=== PATIENT | female | born 1960 | race African-American/Black ===

== ENCOUNTER → 2016-08-11 | Outpatient (CLI) | payer OTHER ==
[2016-08-11 09:30] LABS: CHOLESTEROL 295.82 mg/dL (0-200); Direct HDL 47 mg/dL (>40); TRIGLYCERIDES 133 mg/dL (<150)
[2016-08-11 09:41] LABS: DIRECT LDL 231 mg/dL (<100)
[2016-08-13 14:11] LABS: CYCLIC CITRUL PEPTIDE IGG/A AB 14 units (0-19)
== END ==
LOC: CCC 08:17
DX: E11.9 Type 2 diabetes mellitus without complications (principal); I10 Essential (primary) hypertension; M32.9 Systemic lupus erythematosus, unspecified
CPT/HCPCS: 36415; 72050; 80061; 83036; 84443; 85652; 86038; 86200; 86430

== ENCOUNTER → 2016-09-27 | Outpatient (CLI) | payer OTHER ==
[2016-09-27 11:52] LABS: ANION GAP 14 (5-19); BLOOD UREA NITROGEN 14 mg/dL (7-20); CALCIUM 9.7 mg/dL (8.4-10.2); CARBON DIOXIDE 27 mmol/L (22-30); CHLORIDE 103 mmol/L (98-107); CHOLESTEROL 279.93 mg/dL (0-200); Direct HDL 40 mg/dL (>40); GLUCOSE 201 mg/dL (75-110); MAGNESIUM 1.7 mg/dL (1.6-2.3); SODIUM 143.9 mmol/L (137-145); TRIGLYCERIDES 140 mg/dL (<150)
[2016-09-27 12:02] LABS: DIRECT LDL 200 mg/dL (<100)
--- NOTE | 2016-09-27 12:56 | EKG REPORT ---
SEVERITY:- ABNORMAL ECG - SINUS RHYTHM CONSIDER LEFT VENTRICULAR HYPERTROPHY : Confirmed by: Lynda العلي MD 27-Sep-2016 12:55:18
== END ==
LOC: CCC 09:53
DX: E11.9 Type 2 diabetes mellitus without complications (principal); E78.5 Hyperlipidemia, unspecified; R25.2 Cramp and spasm
CPT/HCPCS: 36415; 80048; 80061; 83735; 93005; 93010

== ENCOUNTER 2016-10-17 15:38 | Emergency (ER) | payer OTHER ==
--- NOTE | 2016-10-17 16:05 | ER Document Report ---
ED Medical Screen (RME) - General Chief Complaint: Abdominal Pain Stated Complaint: ABDOMINAL,BACK,HIP PAIN Notes: Patient says she's having lower abdominal pain and lower back pain for a long time, months, maybe years. She also has pain in her left hip. Over the past week, she says the pain has increased. Does not recall any unusual activity. 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 Patient says she has lupus and wonders if it might have anything to do with the pain she is having. He is not under anyone's care locally at this time because she doesn't have health insurance anymore. She has been going to the [facility] and has an appointment there Tuesday. Patient denies vomiting or diarrhea. Denies UTI symptoms. Denies cough or cold or chest congestion. History of hysterectomy. Hypertension, IDDM, lupus. TRAVEL OUTSIDE OF THE [place] IN LAST 30 DAYS: No - Related Data Allergies/Adverse Reactions: No Known Allergies Allergy (Verified 10/17/16 15:48) Past Medical History - Past Medical History Cardiac Medical History: Reports: Hx Hypercholesterolemia, Hx Hypertension Denies: Hx Heart Attack Endocrine Medical History: Reports: Hx Diabetes Mellitus Type 2 Renal/ Medical History: Denies: Hx Peritoneal Dialysis GI Medical History: Reports: Hx Gastroesophageal Reflux Disease Musculoskeltal Medical History: Reports Hx Arthritis, Reports Hx Fibromyalgia, Reports Hx Musculoskeletal Deformity Psychiatric Medical History: Reports: Hx Anxiety, Hx Depression Past Surgical History: Reports: Hx Cardiac Catheterization, Hx Gynecologic Surgery - BILAT OOPHORECTOMY 2006., Hx Hysterectomy - 1999. - Immunizations Hx Diphtheria, Pertussis, Tetanus Vaccination: Yes Physical Exam - Vital signs Vitals: Temp Pulse Resp BP Pulse Ox 98.7 F 93 18 157/69 H 97 10/17/16 15:48 10/17/16 15:48 10/17/16 15:48 10/17/16 15:48 10/17/16 15:48 Course - Vital Signs Vital signs: Temp Pulse Resp BP Pulse Ox 98.7 F 93 18 157/69 H 97 10/17/16 15:48 10/17/16 15:48 10/17/16 15:48 10/17/16 15:48 10/17/16 15:48
[2016-10-17 16:32] LABS: ABSOLUTE BASOPHILS # (AUTO) 0.1 10^3/uL (0.0-0.2); ABSOLUTE EOSINOPHILS # (AUTO) 0.2 10^3/uL (0.0-0.6); ABSOLUTE LYMPHOCYTES (AUTO) 2.6 10^3/uL (0.5-4.7); ABSOLUTE MONOCYTES (AUTO) 0.4 10^3/uL (0.1-1.4); ABSOLUTE NEUT (AUTO) 3.4 10^3/uL (1.7-8.2); BASOPHILS % (AUTO) 0.8 % (0-2); EOSINOPHILS % (AUTO) 2.8 % (0-6); HEMATOCRIT 40.7 % (36.0-47.0); HEMOGLOBIN 13.8 g/dL (12.0-15.5); HGB HCT DIFFERENCE 0.7; LYMPHOCYTES % (AUTO) 39.8 % (13-45); MEAN CORPUSCULAR VOLUME 85 fl (80-97); MONOCYTES % (AUTO) 5.6 % (3-13); RED BLOOD COUNT 4.76 10^6/uL (3.72-5.28); RED CELL DISTRIBUTION WIDTH 13.7 % (11.5-14.0); WHITE BLOOD COUNT 6.7 10^3/uL (4.0-10.5)
[2016-10-17 16:45] LABS: APPEARANCE,URINE CLEAR; BILIRUBIN,URINE NEGATIVE (NEGATIVE); GLUCOSE, URINE >=500 mg/dL (NEGATIVE); KETONES,URINE NEGATIVE (NEGATIVE); LEUKOCYTE ESTERASE,URINE NEGATIVE (NEGATIVE); NITRITE,URINE NEGATIVE (NEGATIVE); PROTEIN,URINE NEGATIVE (NEGATIVE); URINE SPECIFIC GRAVITY 1.038; UROBILINOGEN,URINE NEGATIVE mg/dL (<2.0)
[2016-10-17 16:47] LABS: ALANINE AMINOTRANSFERASE 37 U/L (9-52); ALBUMIN 4.2 g/dL (3.5-5.0); ALKALINE PHOSPHATASE 75 U/L (38-126); ANION GAP 15 (5-19); ASPARTATE AMINO TRANSFERASE 20 U/L (14-36); BILIRUBIN,DIRECT 0.1 mg/dL (0.0-0.4); BILIRUBIN,TOTAL 0.4 mg/dL (0.2-1.3); BLOOD UREA NITROGEN 16 mg/dL (7-20); CARBON DIOXIDE 27 mmol/L (22-30); CHLORIDE 103 mmol/L (98-107); CREATININE RESULT 0.65 mg/dL (0.52-1.25); GLUCOSE 326 mg/dL (75-110); LIPASE 68.4 U/L (23-300); POTASSIUM 4.1 mmol/L (3.6-5.0); SODIUM 144.5 mmol/L (137-145); TOTAL PROTEIN 7.2 g/dL (6.3-8.2)
--- NOTE | 2016-10-17 17:12 | ER Document Report ---
ED GI/ - General Chief Complaint: Abdominal Pain Stated Complaint: ABDOMINAL,BACK,HIP PAIN Time seen by provider: 17:12 Mode of Arrival: Ambulatory Information source: Patient Notes: 55-year-old female presents to ED for lower abdominal pain and low back pain for a long time probably years. She states she also has left hip pain. She says over the last week this pain is increased. She does not recall any injury but she does do a lot of heavy lifting at work as she works at a [employer] and has to lift patients. She has a history of lupus diabetes blood pressure fibromyalgia chronic fatigue syndrome and neuropathy. TRAVEL OUTSIDE OF THE [place] IN LAST 30 DAYS: No - HPI Patient complains to provider of: Abdominal pain, Other - Low back pain left hip pain Onset: Other - Chronic Timing/Duration: Intermittent Quality of pain: Achy, Sharp Severity at maximum: Moderate Severity in ED: Moderate Pain Level: 3 Location: LLQ, RLQ, Low back, Other - Left hip Vaginal bleeding (Compared to normal period): None Associated symptoms: Other - Pain left and right lower abdomen and back. 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 [employer] Lives with: Alone Family History: Arthritis, Hypertension, Malignancy Patient has suicidal ideation: No Patient has homicidal ideation: No - Past Medical History Cardiac Medical History: Reports: Hx Hypercholesterolemia, Hx Hypertension Pulmonary Medical History: Reports: None EENT Medical History: Reports: None Neurological Medical History: Reports: None Endocrine Medical History: Reports: Hx Diabetes Mellitus Type 2, Other - Peripheral neuropathy Renal/ Medical History: Reports: None Malignancy Medical History: Reports: None GI Medical History: Reports: Hx Gastroesophageal Reflux Disease Musculoskeltal Medical History: Reports Hx Arthritis, Reports Hx Fibromyalgia, Reports Hx Musculoskeletal Deformity Psychiatric Medical History: Reports: Hx Anxiety, Hx Depression, Other - Chronic fatigue Traumatic Medical History: Reports: None Infectious Medical History: Reports: None Past Surgical History: Reports: Hx Cardiac Catheterization, Hx Gynecologic Surgery - BILAT OOPHORECTOMY 2007., Hx Hysterectomy - 1999. - Immunizations Hx Diphtheria, Pertussis, Tetanus Vaccination: Yes Review of Systems - Review of Systems Constitutional: No symptoms reported EENT: No symptoms reported Cardiovascular: No symptoms reported Respiratory: No symptoms reported Gastrointestinal: Abdominal pain - Chronic Genitourinary: No symptoms reported Female Genitourinary: No symptoms reported Musculoskeletal: Back pain - Chronic, Other - Left hip chronic Skin: No symptoms reported Hematologic/Lymphatic: No symptoms reported Neurological/Psychological: No symptoms reported -: Yes All other systems reviewed and negative Physical Exam - Vital signs Vitals: Temp Pulse Resp BP Pulse Ox 98.7 F 93 18 157/69 H 97 10/17/16 15:48 10/17/16 15:48 10/17/16 15:48 10/17/16 15:48 10/17/16 15:48 Interpretation: Normal - General General appearance: Appears well, Alert - HEENT Head: Normocephalic, Atraumatic Eyes: Normal Pupils: PERRL - Respiratory Respiratory status: No respiratory distress Chest status: Nontender Breath sounds: Normal Chest palpation: Normal - Cardiovascular Rhythm: Regular Heart sounds: Normal auscultation Murmur: No - Abdominal Inspection: Normal Distension: No distension Bowel sounds: Normal Tenderness: Tender - Entire lower abdomen. No: McBurney's point, Avelar's sign , Guarding, Rebound Organomegaly: No organomegaly - Back Back: Normal, Tender. No: Deformity/step-off, CVA tenderness, Vertebra tenderness, Scars, Scoliosis, Wounds - Extremities General upper extremity: Normal inspection, Nontender, Normal color, Normal ROM , Normal temperature General lower extremity: Normal inspection, Nontender, Normal color, Normal ROM , Normal temperature, Normal weight bearing. No: Zee's sign - Neurological Neuro grossly intact: Yes Cognition: Normal Orientation: AAOx4 [place] Coma Scale Eye Opening: Spontaneous [place] Coma Scale Verbal: Oriented [place] Coma Scale Motor: Obeys Commands [place] Coma Scale Total: 15 Speech: Normal Motor strength normal: LUE, RUE, LLE, RLE Sensory: Normal - Psychological Associated symptoms: Normal affect, Normal mood - Skin Skin Temperature: Warm Skin Moisture: Dry Skin Color: Normal Course - Re-evaluation Re-evalutation: 10/17/16 17:23 Discussed labs with patient. Written report of labs given to patient to follow- up with her primary doctor. - Vital Signs Vital signs: Temp Pulse Resp BP Pulse Ox 98.7 F 93 18 157/69 H 97 10/17/16 15:48 10/17/16 15:48 10/17/16 15:48 10/17/16 15:48 10/17/16 15:48 - Laboratory Result Diagrams: 10/17/16 16:19 10/17/16 16:19 Laboratory results interpreted by me: 10/17/16 10/17/16 16:19 16:19 Glucose 326 H Urine Glucose (UA) >=500 H Discharge - Discharge Clinical Impression: Lower abdominal pain, Right hip pain Low back pain Qualifiers: Chronicity: chronic Back pain laterality: bilateral Sciatica presence: without sciatica Qualified Code(s): M54.5 - Low back pain Condition: Stable Disposition: HOME, SELF-CARE Additional Instructions: LOW BACK PAIN: Three out of every four people will have an episode of disabling back pain during their lifetime. Most commonly the pain is due to straining of the muscles and ligaments in the low back. Usual treatment includes: (1) Rest on a firm surface. Avoid lying on your stomach. (2) Ice pack the painful area. After a few days, gentle heat may be used intermittently to relax the area, or ice packs can be continued. (3) Medication may be needed -- muscle relaxers and antiinflammatory medicines are commonly used. (4) As the back improves, exercises are prescribed to strengthen the back and abdominal muscles. Your doctor will advise you on the proper care for your back at each stage in your recovery. You may be better in a few days -- or healing may take several weeks. If new symptoms of a "herniated disc" (radiation of pain, numbness, or tingling down the back of the leg or weakness in the leg) occur, you should be re-examined. Further testing may be necessary. ABDOMINAL PAIN: There are many causes of abdominal pain. Pain can mean a serious problem requiring surgery (such as appendicitis). It can also be an innocent problem that goes away on its own (such as a viral infection). Often, time must pass to determine the cause of pain. The physician does not feel that hospitalization is necessary, at present. Things may change within the next 24 hours. Call the doctor or come back for re- examination if any problems occur, such as: (1) Pain that becomes more severe, steady, or becomes concentrated in one specific area. Also, pain that is more severe with movement or coughing. (2) Vomiting that persists or becomes more frequent. (3) Blood in the vomitus, urine, or bowel movements. Blood in the stool may have a tarry or black appearance. (4) Shaking chills or fever greater than 100 degrees F. (5) The abdomen becomes more distended or swollen. (6) Bowel movements cease. (7) Failure to improve as expected. Please limit sure starches and fats in your diet as it increases your blood sugar. Please follow your diabetic diet as you were instructed by your doctor. ICE PACKS: Apply ice packs frequently against the painful area. Many different schedules are recommended, such as "20 minutes on, 20 minutes off" or "one hour ice, two hours rest." If you need to work, you may need to go longer between ice treatments. You should plan to have the area ice packed AT LEAST one fourth of the time. The ice should be applied over the wrap, tape, or splint, or over a layer of cloth -- not directly against the skin. Some ice bags have a built-in cloth and can be put directly on the skin. WARM PACKS: After approximately two days, apply gentle heat (such as a heating pad or hot water bottle) for about 20 to 30 minutes about every two hours -- at least four times daily. Warmth and elevation will help you make a more rapid recovery , and will ease the pain considerably. Do not use HOT heat, and never apply heat for longer than 30 minutes. The continuous heat can invisibly damage skin and muscles -- even when no burn is seen on the surface. Damaged muscles can make you MORE sore. Continue your current medications. Please take the lab values that I gave you to your appointment with [facility] on Tuesday. FOLLOW-UP CARE: If you have been referred to a physician for follow-up care, call the physician s office for an appointment as you were instructed or within the next two days. If you experience worsening or a significant change in your symptoms, notify the physician immediately or return to the Emergency Department at any time for re-evaluation. Forms: Elevated Blood Pressure, Return to Work Referrals: [facility] [Provider Group] - Follow up as needed
[2016-10-17 18:20] VITALS: BP 145/86
== END 2016-10-17 18:24 | disposition home or self-care (01) ==
LOC: ER 15:38
DX: R10.30 Lower abdominal pain, unspecified (principal); M25.552 Pain in left hip; M54.5 Low back pain; M32.9 Systemic lupus erythematosus, unspecified; E11.9 Type 2 diabetes mellitus without complications; R03.0 Elevated blood-pressure reading, without diagnosis of hypertension; M79.7 Fibromyalgia; R53.82 Chronic fatigue, unspecified; G62.9 Polyneuropathy, unspecified
CPT/HCPCS: 36415; 80053; 81001; 83690; 85025; 99284

== ENCOUNTER 2016-11-03 18:32 | Emergency (ER) | payer SELFPAY ==
[2016-11-03] MEDS ORDERED: MECLIZINE HCL 25 MG TABLET PO ONE (18:56)
--- NOTE | 2016-11-03 18:56 | ER Document Report ---
ED Medical Screen (RME) - General Chief Complaint: Dizziness Stated Complaint: DIZZY/LEFT HAND SWELLING Time Seen by Provider: 11/03/16 18:52 Mode of Arrival: Ambulatory Information source: Patient Notes: Patient reports several weeks of intermittent dizziness which has been mild but this morning while walking noticed much more severe dizziness to the point that she had difficulty walking without holding onto something and falling over to her right side. She denies any loss of consciousness. She reports occasional nausea with the dizziness but no vomiting. She reports it is not made worse with sitting up or with head rotation. She denies any visual disturbances or focal numbness weakness to any extremity. He reported one point she might of had some shortness of breath with it but denies any chest pain or diaphoresis she thinks the dizziness is somewhat better now but still worse than what she is accustomed to Physical exam Well-developed well-nourished female alert no respiratory distress Skin warm and dry Chest clear to auscultation bilateral breath sounds equal Heart regular rate and rhythm Neuro speech clear mentation normal facing baster jumpbasting strength 5 out of 5 equal both upper tremors motor function 5 out of 5 equal both lower extremities cranial nerves III through XII intact no nystagmus rotation of head left or right does not reproduce patient's dizziness TRAVEL OUTSIDE OF THE [place] IN LAST 30 DAYS: No - Related Data Allergies/Adverse Reactions: No Known Allergies Allergy (Verified 10/17/16 15:48) Past Medical History - Past Medical History Cardiac Medical History: Reports: Hx Hypercholesterolemia, Hx Hypertension Denies: Hx Heart Attack Endocrine Medical History: Reports: Hx Diabetes Mellitus Type 2 Renal/ Medical History: Denies: Hx Peritoneal Dialysis GI Medical History: Reports: Hx Gastroesophageal Reflux Disease Musculoskeltal Medical History: Reports Hx Arthritis, Reports Hx Fibromyalgia, Reports Hx Musculoskeletal Deformity Psychiatric Medical History: Reports: Hx Anxiety, Hx Depression Past Surgical History: Reports: Hx Cardiac Catheterization, Hx Gynecologic Surgery - BILAT OOPHORECTOMY 2006., Hx Hysterectomy - 1999. - Immunizations Hx Diphtheria, Pertussis, Tetanus Vaccination: Yes Physical Exam - Vital signs Vitals: Temp Pulse Resp BP Pulse Ox 98.7 F 78 18 135/74 H 97 11/03/16 18:40 11/03/16 18:40 11/03/16 18:40 11/03/16 18:40 11/03/16 18:40 Course - Vital Signs Vital signs: Temp Pulse Resp BP Pulse Ox 98.7 F 78 18 135/74 H 97 11/03/16 18:40 11/03/16 18:40 11/03/16 18:40 11/03/16 18:40 11/03/16 18:40
[2016-11-03 19:27] LABS: ABSOLUTE EOSINOPHILS # (AUTO) 0.2 10^3/uL (0.0-0.6); ABSOLUTE LYMPHOCYTES (AUTO) 2.7 10^3/uL (0.5-4.7); ABSOLUTE MONOCYTES (AUTO) 0.5 10^3/uL (0.1-1.4); BASOPHILS % (AUTO) 0.6 % (0-2); EOSINOPHILS % (AUTO) 3.7 % (0-6); HEMATOCRIT 43.5 % (36.0-47.0); HEMOGLOBIN 14.6 g/dL (12.0-15.5); HGB HCT DIFFERENCE 0.3; LYMPHOCYTES % (AUTO) 41.8 % (13-45); MEAN CORPUSCULAR HEMOGLOBIN 28.5 pg (27.0-33.4); MEAN CORPUSCULAR HGB CONC 33.5 g/dL (32.0-36.0); MEAN CORPUSCULAR VOLUME 85 fl (80-97); MONOCYTES % (AUTO) 7.8 % (3-13); RED BLOOD COUNT 5.12 10^6/uL (3.72-5.28); RED CELL DISTRIBUTION WIDTH 13.8 % (11.5-14.0); SEGMENTED NEUTROPHILS % (AUTO) 46.1 % (42-78); WHITE BLOOD COUNT 6.4 10^3/uL (4.0-10.5)
[2016-11-03 19:46] LABS: ALANINE AMINOTRANSFERASE 38 U/L (9-52); ALBUMIN 4.4 g/dL (3.5-5.0); ALKALINE PHOSPHATASE 84 U/L (38-126); ANION GAP 14 (5-19); ASPARTATE AMINO TRANSFERASE 21 U/L (14-36); BILIRUBIN,DIRECT 0.3 mg/dL (0.0-0.4); BILIRUBIN,TOTAL 0.4 mg/dL (0.2-1.3); BLOOD UREA NITROGEN 18 mg/dL (7-20); CALCIUM 10.2 mg/dL (8.4-10.2); CARBON DIOXIDE 29 mmol/L (22-30); CHLORIDE 99 mmol/L (98-107); CREATINE KINASE 82 U/L (30-135); CREATININE RESULT 0.67 mg/dL (0.52-1.25); POTASSIUM 3.6 mmol/L (3.6-5.0); SODIUM 141.6 mmol/L (137-145); TOTAL PROTEIN 7.8 g/dL (6.3-8.2)
[2016-11-03 19:56] LABS: CREATINE KINASE MB 0.72 ng/mL (<4.55); GLUCOSE 415 mg/dL (75-110); TROPONIN I < 0.012 ng/mL
[2016-11-03] MEDS ORDERED: INSULIN REG, HUMAN 100 UNIT/ML 3 ML VIAL (PYX) SUBCUT ONE (20:11)
--- NOTE | 2016-11-03 20:29 | ER Document Report ---
ED Dizziness/Weakness - General Chief Complaint: Dizziness Stated Complaint: DIZZY/LEFT HAND SWELLING Time Seen by Provider: 11/03/16 18:52 Mode of Arrival: Ambulatory Information source: Patient Notes: Patient is 55-year-old -Thai female with type II diabetes who presents to the ER today for dizziness 1 day, worsening today and elevated blood sugar readings at home, as high as 350 prior to arrival. Patient takes Toujeo insulin and states that she did give herself her regular 28 units today. She states that she does not have insurance and cannot afford "good care" and that she does not check her blood sugar regularly. She does state that when she does check it usually does run high. She also admits to not eating a good diet because she "just doesn't care." She denies any chest pain, shortness of breath, nausea or vomiting, abdominal pain, diarrhea, abnormal numbness or tingling anywhere. She states that she also had some swelling in her right hand that she noticed yesterday but that it has gone down at this time. It was only over one of her knuckles. She does not think anything bit her. TRAVEL OUTSIDE OF THE [place] IN LAST 30 DAYS: No - Related Data Allergies/Adverse Reactions: No Known Allergies Allergy (Verified 10/17/16 15:48) Past Medical History - General Information source: Patient - Social History Smoking Status: Unknown if Ever Smoked Family History: Arthritis, Hypertension, Malignancy Patient has suicidal ideation: No Patient has homicidal ideation: No - Past Medical History Cardiac Medical History: Reports: Hx Hypercholesterolemia, Hx Hypertension Denies: Hx Heart Attack Endocrine Medical History: Reports: Hx Diabetes Mellitus Type 2 Renal/ Medical History: Denies: Hx Peritoneal Dialysis GI Medical History: Reports: Hx Gastroesophageal Reflux Disease Musculoskeltal Medical History: Reports Hx Arthritis, Reports Hx Fibromyalgia, Reports Hx Musculoskeletal Deformity Psychiatric Medical History: Reports: Hx Anxiety, Hx Depression Past Surgical History: Reports: Hx Cardiac Catheterization, Hx Gynecologic Surgery - BILAT OOPHORECTOMY 2006., Hx Hysterectomy - 1999. - Immunizations Hx Diphtheria, Pertussis, Tetanus Vaccination: Yes Review of Systems - Review of Systems Constitutional: No symptoms reported EENT: No symptoms reported Cardiovascular: No symptoms reported Respiratory: No symptoms reported Gastrointestinal: No symptoms reported Genitourinary: No symptoms reported Female Genitourinary: No symptoms reported Musculoskeletal: No symptoms reported Skin: See HPI Hematologic/Lymphatic: No symptoms reported Neurological/Psychological: See HPI Physical Exam - Vital signs Vitals: Temp Pulse Resp BP Pulse Ox 98.7 F 78 18 135/74 H 97 11/03/16 18:40 11/03/16 18:40 11/03/16 18:40 11/03/16 18:40 11/03/16 18:40 - Notes Notes: PHYSICAL EXAMINATION: GENERAL: Laying down, not wanting to move around a lot, but in no acute distress. HEAD: Atraumatic, normocephalic. EYES: No nystagmus noted, Pupils equal round and reactive to light, extraocular movements intact, sclera anicteric, conjunctiva are normal. ENT: ear canals without erythema or foreign body, TMs pearly gordon with good bony landmarks, nares patent, oropharynx clear without exudates. Moist mucous membranes. NECK: Normal range of motion, supple without lymphadenopathy LUNGS: CTAB and equal. No wheezes rales or rhonchi. HEART: Regular rate and rhythm without murmurs ABDOMEN: Soft, no tenderness. No guarding, no rebound GI/: no CVA tenderness EXTREMITIES: Normal range of motion, no pitting edema. No cyanosis. NEUROLOGICAL: Good and equal strength bilaterally, normal Romberg test, normal [id number] testing, Cranial nerves grossly intact. Normal sensory/motor exams. PSYCH: Flat affect SKIN: Warm, Dry, normal turgor, no rashes or lesions noted Course - Re-evaluation Re-evalutation: 11/03/16 20:29 Patient's blood sugar is 415. Regular insulin was administered. 11/03/16 21:26 Patient feels better, walking around and states that dizziness is not bothering her at this time. Will recheck sugar and get ready for discharge. 11/03/16 22:48 glucose was 266 on discharge. 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 Please check your sugar daily. Return immediately for any new or worsening symptoms. Follow up with primary care provider, call tomorrow to make followup appointment.
--- NOTE | 2016-11-03 23:40 | EKG REPORT ---
SEVERITY:- ABNORMAL ECG - SINUS RHYTHM PROBABLE LEFT ATRIAL ABNORMALITY PROBABLE LEFT VENTRICULAR HYPERTROPHY BORDERLINE INFERIOR Q WAVES BORDERLINE T ABNORMALITIES, INFERIOR LEADS : Confirmed by: Lenard Tse 03-Nov-2016 23:39:50
[2016-11-03 23:50] VITALS: BP 149/60
== END 2016-11-03 21:27 | disposition home or self-care (01) ==
LOC: ER 18:32
DX: E11.65 Type 2 diabetes mellitus with hyperglycemia (principal); Z79.4 Long term (current) use of insulin; R42 Dizziness and giddiness; Z59.9 Problem related to housing and economic circumstances, unspecified; I10 Essential (primary) hypertension
CPT/HCPCS: 93005; 99285; 36415; 82553; 82962; 82550; 85025; 80053; 84484; 71010; 70450; 93010; J1815

== ENCOUNTER 2016-11-04 17:24 | Emergency (ER) | payer SELFPAY ==
--- NOTE | 2016-11-04 19:18 | ER Document Report ---
ED Medical Screen (RME) - General Mode of Arrival: Ambulatory Information source: Patient TRAVEL OUTSIDE OF THE [place] IN LAST 30 DAYS: No - HPI Patient complains to provider of: dizzy - General Chief Complaint: Dizziness Stated Complaint: dizziness Notes: Patient presents with complaints of dizziness for 3 days. Was seen here yesterday for same complaint told it was due to high blood sugar, pt recorded her sugars at 300 today but hasn't checked again after taking insulin. Patient describes dizziness as her head spinning and also complains of being off balance , veering to the right, headache on the top of her skull, and intermittent chest pain. Patient is not on blood thinners. no family history of heart attack or CVA, no blood clots. Hx of lupus, DM, HTN, and hypercholesterolema. (YESSICA BARRAGAN) - Related Data Allergies/Adverse Reactions: No Known Allergies Allergy (Verified 11/04/16 18:45) Past Medical History - General Information source: Patient - Social History Cigarette use (# per day): No Chew tobacco use (# tins/day): No Frequency of alcohol use: None Drug Abuse: None - Past Medical History Cardiac Medical History: Reports: Hx Hypercholesterolemia, Hx Hypertension Denies: Hx Heart Attack Endocrine Medical History: Reports: Hx Diabetes Mellitus Type 2 Renal/ Medical History: Denies: Hx Peritoneal Dialysis GI Medical History: Reports: Hx Gastroesophageal Reflux Disease Musculoskeltal Medical History: Reports Hx Arthritis, Reports Hx Fibromyalgia, Reports Hx Musculoskeletal Deformity Psychiatric Medical History: Reports: Hx Anxiety, Hx Depression Past Surgical History: Reports: Hx Cardiac Catheterization, Hx Gynecologic Surgery - BILAT OOPHORECTOMY 2006., Hx Hysterectomy - 1999. - Immunizations Hx Diphtheria, Pertussis, Tetanus Vaccination: Yes Review of Systems - Review of Systems Cardiovascular: See HPI, Dizziness Physical Exam - HEENT Eyes: Normal Extraocular movements intact: Yes - no nystagmus - Respiratory Respiratory status: No respiratory distress Chest status: Nontender Breath sounds: Normal - Cardiovascular Rhythm: Regular Heart sounds: Normal auscultation Murmur: No - Abdominal Inspection: Normal Distension: No distension Bowel sounds: Normal Tenderness: Nontender - Back Back: Normal, Nontender - Extremities General upper extremity: Normal inspection General lower extremity: Normal inspection - Neurological Neuro grossly intact: Yes Cognition: Normal Orientation: AAOx4 [place] Coma Scale Eye Opening: Spontaneous [place] Coma Scale Verbal: Oriented [place] Coma Scale Motor: Obeys Commands [place] Coma Scale Total: 15 Speech: Normal Cranial nerves: Normal Cerebellar coordination: Normal Motor strength normal: LUE, RUE, LLE, RLE Additional 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 Patient apparently felt much better after blood sugar decreased. We will not repeat CAT scan at today as her symptoms are unchanged. (JASON CRYSTAL) - Vital Signs Vital signs: Temp Pulse Resp BP Pulse Ox 98.7 F 74 17 142/72 H 96 11/04/16 17:29 11/04/16 17:29 11/04/16 17:29 11/04/16 17:29 11/04/16 17:29 Scribe Documentation - Scribe Written by Patrick:: patrick Chan, 11/04/16, 192 acting as scribe for :: Greer
[2016-11-04 19:47] LABS: ABSOLUTE EOSINOPHILS # (AUTO) 0.3 10^3/uL (0.0-0.6); ABSOLUTE LYMPHOCYTES (AUTO) 3.3 10^3/uL (0.5-4.7); ABSOLUTE MONOCYTES (AUTO) 0.6 10^3/uL (0.1-1.4); ABSOLUTE NEUT (AUTO) 2.7 10^3/uL (1.7-8.2); BASOPHILS % (AUTO) 0.6 % (0-2); EOSINOPHILS % (AUTO) 3.8 % (0-6); HEMATOCRIT 43.1 % (36.0-47.0); HEMOGLOBIN 14.2 g/dL (12.0-15.5); HGB HCT DIFFERENCE -0.5; LYMPHOCYTES % (AUTO) 47.6 % (13-45); MEAN CORPUSCULAR HEMOGLOBIN 28.6 pg (27.0-33.4); MEAN CORPUSCULAR VOLUME 87 fl (80-97); MONOCYTES % (AUTO) 8.2 % (3-13); RED BLOOD COUNT 4.98 10^6/uL (3.72-5.28); RED CELL DISTRIBUTION WIDTH 13.9 % (11.5-14.0); SEGMENTED NEUTROPHILS % (AUTO) 39.8 % (42-78); WHITE BLOOD COUNT 6.9 10^3/uL (4.0-10.5)
[2016-11-04 19:55] LABS: APPEARANCE,URINE CLEAR; BILIRUBIN,URINE NEGATIVE (NEGATIVE); GLUCOSE, URINE >=500 mg/dL (NEGATIVE); KETONES,URINE NEGATIVE (NEGATIVE); LEUKOCYTE ESTERASE,URINE NEGATIVE (NEGATIVE); NITRITE,URINE NEGATIVE (NEGATIVE); PROTEIN,URINE NEGATIVE (NEGATIVE); URINE SPECIFIC GRAVITY 1.032; UROBILINOGEN,URINE NEGATIVE mg/dL (<2.0)
[2016-11-04 20:08] LABS: ALANINE AMINOTRANSFERASE 43 U/L (9-52); ALBUMIN 4.2 g/dL (3.5-5.0); ALKALINE PHOSPHATASE 80 U/L (38-126); ANION GAP 13 (5-19); ASPARTATE AMINO TRANSFERASE 20 U/L (14-36); BILIRUBIN,DIRECT 0.4 mg/dL (0.0-0.4); BILIRUBIN,TOTAL 0.5 mg/dL (0.2-1.3); BLOOD UREA NITROGEN 24 mg/dL (7-20); CALCIUM 10.3 mg/dL (8.4-10.2); CARBON DIOXIDE 30 mmol/L (22-30); CHLORIDE 99 mmol/L (98-107); CREATINE KINASE 72 U/L (30-135); CREATININE RESULT 0.71 mg/dL (0.52-1.25); GLUCOSE 356 mg/dL (75-110); POTASSIUM 3.8 mmol/L (3.6-5.0); TOTAL PROTEIN 7.6 g/dL (6.3-8.2)
[2016-11-04 20:21] LABS: TROPONIN I < 0.012 ng/mL
--- NOTE | 2016-11-04 23:12 | ER Document Report ---
ED General - General Chief Complaint: Dizziness Stated Complaint: CHEST PAIN Time Seen by Provider: 11/04/16 19:10 Mode of Arrival: Ambulatory Information source: Patient TRAVEL OUTSIDE OF THE [place] IN LAST 30 DAYS: No - HPI Notes: Patient is a 55-year-old female history of [id number] diabetes lupus hypertension hypercholesterolemia status post cardiac catheterization that was without significant abnormality 2012, status post hysterectomy and history of anxiety presents to emergency department with report that she felt dizzy and lightheaded upon standing and felt generally weak. The patient is not observing a diabetic diet and reports eating a pack of snickers bars and perpetually drinking sweetened iced tea and other sugary foods and her blood sugars have been running elevated recently. Patient reports she had 2-3 second episode of mild chest pain at 11:30 AM that was associated with minimal belching. She denies any difficulty breathing and reports no nausea or vomiting. Patient denies any radiation of chest pain. She denies any significant headache. Patient was seen yesterday for similar complaint and blood sugar was over 400 came down to 200s and she had a negative head CT and other normal lab work. Patient states she is on Glucophage 500 mg once per day because she was unable to take a larger dose due to it making her feel ill. She currently takes glipizide 10 mg by mouth twice a day and states she is compliant. - Related Data Allergies/Adverse Reactions: No Known Allergies Allergy (Verified 11/04/16 18:45) Past Medical History - General Information source: Patient - Social History Smoking Status: Never Smoker Cigarette use (# per day): No Chew tobacco use (# tins/day): No Frequency of alcohol use: None Drug Abuse: None Family History: Arthritis, Hypertension, Malignancy Patient has suicidal ideation: No Patient has homicidal ideation: No - Past Medical History Cardiac Medical History: Reports: Hx Hypercholesterolemia, Hx Hypertension Denies: Hx Heart Attack Endocrine Medical History: Reports: Hx Diabetes Mellitus Type 2 Renal/ Medical History: Denies: Hx Peritoneal Dialysis GI Medical History: Reports: Hx Gastroesophageal Reflux Disease Musculoskeltal Medical History: Reports Hx Arthritis, Reports Hx Fibromyalgia, Reports Hx Musculoskeletal Deformity Psychiatric Medical History: Reports: Hx Anxiety, Hx Depression Past Surgical History: Reports: Hx Cardiac Catheterization, Hx Gynecologic Surgery - BILAT OOPHORECTOMY 2006., Hx Hysterectomy - Immunizations Hx Diphtheria, Pertussis, Tetanus Vaccination: Yes Review of Systems - Review of Systems Notes: REVIEW OF SYSTEMS: CONSTITUTIONAL : Denies fever, chills, or sweats. EENT: Denies eye, ear, throat, or mouth pain or symptoms. Denies nasal or sinus congestion or discharge. Denies throat, tongue, or mouth swelling or difficulty swallowing. CARDIOVASCULAR: Denies palpitations or racing or irregular heart beat. Denies ankle edema. RESPIRATORY: Denies cough, cold, or chest congestion. Denies shortness of breath, difficulty breathing, or wheezing. GASTROINTESTINAL: Denies abdominal pain or distention. Denies nausea, vomiting , or diarrhea. Denies blood in vomitus, stools, or per rectum. Denies black, tarry stools. Denies constipation. GENITOURINARY: Denies difficulty urinating, painful urination, burning, frequency, blood in urine, or discharge. FEMALE GENITOURINARY: Denies vaginal bleeding, heavy or abnormal periods, irregular periods. Denies vaginal discharge or odor. MUSCULOSKELETAL: Denies back or neck pain or stiffness. Denies joint pain or swelling. SKIN: Denies rash, lesions or sores. HEMATOLOGIC : Denies easy bruising or bleeding. LYMPHATIC: Denies swollen, enlarged glands. NEUROLOGICAL: Denies confusion or altered mental status. Denies passing out or loss of consciousness. Denies headache. Denies weakness or paralysis or loss of use of either side. Denies problems with gait or speech. Denies sensory loss, numbness, or tingling. Denies seizures. PSYCHIATRIC: Denies anxiety or stress. Denies depression, suicidal ideation, or homicidal ideation. ALL OTHER SYSTEMS REVIEWED AND NEGATIVE. Dictation was performed using [employer] voice recognition software Physical Exam - Vital signs Vitals: Temp Pulse Resp BP Pulse Ox 98.7 F 74 17 142/72 H 96 11/04/16 17:29 11/04/16 17:29 11/04/16 17:29 11/04/16 17:29 11/04/16 17:29 - Notes Notes: PHYSICAL EXAMINATION: GENERAL: Well-appearing, well-nourished and in no acute distress. HEAD: Atraumatic, normocephalic. EYES: Pupils equal round and reactive to light, extraocular movements intact, conjunctiva are normal. ENT: Nares patent, oropharynx clear without exudates. Moist mucous membranes. Tympanic membranes are clear. NECK: Normal range of motion, supple without lymphadenopathy. No carotid bruits. LUNGS: Breath sounds clear to auscultation bilaterally and equal. No wheezes rales or rhonchi. HEART: Regular rate and rhythm without murmurs ABDOMEN: Soft, nontender, nondistended abdomen. No guarding, no rebound. No masses appreciated. Obese Female : deferred Musculoskeletal: Normal range of motion, no pitting or edema. No cyanosis. NEUROLOGICAL: Cranial nerves grossly intact. Normal speech, normal gait. Normal sensory, motor exams. No gross nystagmus. No cerebellar abnormalities. Normal gait exam. PSYCH: Normal mood, normal affect. SKIN: Warm, Dry, normal turgor, no rashes or lesions noted. Course - Re-evaluation Re-evalutation: 11/04/16 23:12 Initial blood sugar is 356. The patient was given by mouth fluids and repeat blood sugar came down to 215. Patient's elevated BUN to creatinine ratio supports a mild dehydration related to her perpetual hyperglycemia. However, she may be somewhat dehydrated related to her hydrochlorothiazide dosing. We will stop the hydrochlorothiazide. We will instruct the patient to observe a prudent diabetic diet she was counseled at length related to this. Patient will follow-up with her regular practitioner, she may need further evaluation for possible increase in her glipizide dosing. She will stand up slowly and drink plenty of water. No evidence for diabetic ketoacidosis or GI bleed or anemia or CVA or acute cardiac ischemia, and troponin is negative many hours after onset of the several seconds of chest pain the patient had previously. 11/04/16 23:16 Patient was ambulatory with stable blood pressure and was asymptomatic. No clinical suggestion for CVA or cardiac ischemia. - Vital Signs Vital signs: Temp Pulse Resp BP Pulse Ox 98.2 F 73 18 138/68 H 97 11/04/16 21:30 11/04/16 21:30 11/04/16 22:00 11/04/16 21:30 11/04/16 22:00 - Laboratory Result Diagrams: 11/04/16 19:25 11/04/16 19:25 Laboratory results interpreted by me: 11/04/16 11/04/16 11/04/16 19:25 19:25 19:25 Seg Neutrophils % 39.8 L Lymphocytes % 47.6 H BUN 24 H Glucose 356 H POC Glucose Calcium 10.3 H Urine Glucose (UA) >=500 H 11/04/16 22:41 Seg Neutrophils % Lymphocytes % BUN Glucose POC Glucose 215 H Calcium Urine Glucose (UA) - Diagnostic Test Radiology reviewed: Reports reviewed - EKG Interpretation by Me EKG shows normal: Sinus rhythm Additional EKG results interpreted by me: 11/04/16 23:11 EKG as interpreted by me showed normal sinus rhythm heart rate of 69. There was left ventricular hypertrophy noted. There was no gross evidence for acute MA or ischemia noted. Discharge - Discharge Clinical Impression: Dizziness, Hyperglycemia, Dehydration Condition: Stable Disposition: HOME, SELF-CARE Instructions: Dizziness ([facility]), Dehydration ([facility]), Hyperglycemia ([facility]), Chest Pain of Unclear Cause ([facility]) Additional Instructions: Follow-up with your regular practitioner in 2 days. If her blood sugars remain elevated, your doctor may want to increase her glipizide or even consider starting insulin. Drink plenty of water. Stand slowly. Check and record her blood sugars regularly. It is very important for you to have a very prudent diabetic diet and limit your sugar intake.
[2016-11-05 00:05] VITALS: BP 130/60
--- NOTE | 2016-11-05 13:46 | EKG REPORT ---
SEVERITY:- ABNORMAL ECG - SINUS RHYTHM CONSIDER LEFT VENTRICULAR HYPERTROPHY BORDERLINE INFERIOR Q WAVES : Confirmed by: Lenard Tse 05-Nov-2016 13:45:30
== END 2016-11-05 00:02 | disposition home or self-care (01) ==
LOC: ER 17:24
DX: R42 Dizziness and giddiness (principal); E86.0 Dehydration; E11.65 Type 2 diabetes mellitus with hyperglycemia; R53.1 Weakness; R07.9 Chest pain, unspecified; Z79.4 Long term (current) use of insulin; Z79.84 Long term (current) use of oral hypoglycemic drugs; I10 Essential (primary) hypertension; E78.00 Pure hypercholesterolemia, unspecified; Z90.710 Acquired absence of both cervix and uterus
CPT/HCPCS: 36415; 71020; 80053; 81001; 82550; 82553; 82962; 84484; 85025; 93005; 93010; 99284

== ENCOUNTER 2016-11-06 12:54 | Emergency (ER) | payer SELFPAY ==
--- NOTE | 2016-11-06 13:48 | ER Document Report ---
ED Medical Screen (RME) - General Chief Complaint: Dizziness Stated Complaint: DIZZINESS Time Seen by Provider: 11/06/16 13:41 Mode of Arrival: Ambulatory Information source: Patient Notes: 55-year-old female who was seen here twice in the past week with history of diabetes presents with complaints of feeling dizzy Patient was noted to have elevated blood sugar on Tuesday, was noted to have elevated BUNs on . Today she feels lightheaded dizzy I have greeted and performed a rapid initial assessment of this patient. A comprehensive ED assessment and evaluation of the patient, analysis of test results and completion of the medical decision making process will be conducted by additional ED providers. PHYSICAL EXAMINATION: GENERAL: Well-appearing, well-nourished and in no acute distress. HEAD: Atraumatic, normocephalic. EYES: Pupils equal round and reactive to light, extraocular movements intact, conjunctiva are normal. ENT: Nares patent, oropharynx clear without exudates. Moist mucous membranes. NECK: Normal range of motion, supple without lymphadenopathy LUNGS: Breath sounds clear to auscultation bilaterally and equal. No wheezes rales or rhonchi. HEART: Regular rate and rhythm without murmurs ABDOMEN: Soft, nontender, nondistended abdomen. No guarding, no rebound. No masses appreciated. Female : deferred Musculoskeletal: Normal range of motion, no pitting or edema. No cyanosis. NEUROLOGICAL: Cranial nerves grossly intact. Normal speech, normal gait. Normal sensory, motor exams PSYCH: Normal mood, normal affect. SKIN: Warm, Dry, normal turgor, no rashes or lesions noted. TRAVEL OUTSIDE OF THE [place] IN LAST 30 DAYS: No - Related Data Allergies/Adverse Reactions: No Known Allergies Allergy (Verified 11/06/16 13:32) Past Medical History - Social History Chew tobacco use (# tins/day): No Frequency of alcohol use: None Drug Abuse: None - Past Medical History Cardiac Medical History: Reports: Hx Hypercholesterolemia, Hx Hypertension Denies: Hx Heart Attack Endocrine Medical History: Reports: Hx Diabetes Mellitus Type 2 Renal/ Medical History: Denies: Hx Peritoneal Dialysis GI Medical History: Reports: Hx Gastroesophageal Reflux Disease Musculoskeltal Medical History: Reports Hx Arthritis, Reports Hx Fibromyalgia, Reports Hx Musculoskeletal Deformity Psychiatric Medical History: Reports: Hx Anxiety, Hx Depression Past Surgical History: Reports: Hx Cardiac Catheterization, Hx Gynecologic Surgery - BILAT OOPHORECTOMY 2006., Hx Hysterectomy - Immunizations Hx Diphtheria, Pertussis, Tetanus Vaccination: Yes Physical Exam - Vital signs Vitals: Temp Pulse Resp BP Pulse Ox 98.4 F 68 14 140/76 H 98 11/06/16 13:32 11/06/16 13:32 11/06/16 13:32 11/06/16 13:32 11/06/16 13:32 Course - Vital Signs Vital signs: Temp Pulse Resp BP Pulse Ox 98.4 F 68 14 140/76 H 98 11/06/16 13:32 11/06/16 13:32 11/06/16 13:32 11/06/16 13:32 11/06/16 13:32
[2016-11-06 14:22] LABS: ABSOLUTE BASOPHILS # (AUTO) 0.1 10^3/uL (0.0-0.2); ABSOLUTE EOSINOPHILS # (AUTO) 0.2 10^3/uL (0.0-0.6); ABSOLUTE LYMPHOCYTES (AUTO) 2.8 10^3/uL (0.5-4.7); ABSOLUTE MONOCYTES (AUTO) 0.3 10^3/uL (0.1-1.4); ABSOLUTE NEUT (AUTO) 2.4 10^3/uL (1.7-8.2); BASOPHILS % (AUTO) 1.1 % (0-2); EOSINOPHILS % (AUTO) 3.4 % (0-6); HEMATOCRIT 43.2 % (36.0-47.0); HEMOGLOBIN 14.4 g/dL (12.0-15.5); LYMPHOCYTES % (AUTO) 48.5 % (13-45); MEAN CORPUSCULAR HEMOGLOBIN 28.8 pg (27.0-33.4); MEAN CORPUSCULAR HGB CONC 33.4 g/dL (32.0-36.0); MEAN CORPUSCULAR VOLUME 86 fl (80-97); MONOCYTES % (AUTO) 5.6 % (3-13); RED CELL DISTRIBUTION WIDTH 13.9 % (11.5-14.0); SEGMENTED NEUTROPHILS % (AUTO) 41.4 % (42-78); WHITE BLOOD COUNT 5.8 10^3/uL (4.0-10.5)
[2016-11-06 14:42] LABS: APPEARANCE,URINE CLEAR; BILIRUBIN,URINE NEGATIVE (NEGATIVE); GLUCOSE, URINE >=500 mg/dL (NEGATIVE); KETONES,URINE TRACE mg/dL (NEGATIVE); LEUKOCYTE ESTERASE,URINE NEGATIVE (NEGATIVE); NITRITE,URINE NEGATIVE (NEGATIVE); PROTEIN,URINE NEGATIVE (NEGATIVE); URINE SPECIFIC GRAVITY 1.038; UROBILINOGEN,URINE NEGATIVE mg/dL (<2.0)
[2016-11-06 14:43] LABS: ALANINE AMINOTRANSFERASE 39 U/L (9-52); ALBUMIN 4.3 g/dL (3.5-5.0); ALKALINE PHOSPHATASE 86 U/L (38-126); ANION GAP 14 (5-19); ASPARTATE AMINO TRANSFERASE 23 U/L (14-36); BILIRUBIN,DIRECT 0.3 mg/dL (0.0-0.4); BILIRUBIN,TOTAL 0.5 mg/dL (0.2-1.3); BLOOD UREA NITROGEN 17 mg/dL (7-20); CALCIUM 9.8 mg/dL (8.4-10.2); CARBON DIOXIDE 30 mmol/L (22-30); CHLORIDE 100 mmol/L (98-107); CREATININE RESULT 0.72 mg/dL (0.52-1.25); GLUCOSE 297 mg/dL (75-110); POTASSIUM 3.5 mmol/L (3.6-5.0); SODIUM 143.5 mmol/L (137-145); TOTAL PROTEIN 7.8 g/dL (6.3-8.2)
[2016-11-06] MEDS ORDERED: NORMAL SALINE 1000 ML 1,000 ML IV PRN (15:22)
[2016-11-06] MEDS ORDERED: MECLIZINE HCL 25 MG TABLET PO ONE (15:22)
--- NOTE | 2016-11-06 15:24 | ER Document Report ---
ED Dizziness/Weakness - General Chief Complaint: Dizziness Stated Complaint: DIZZINESS Time Seen by Provider: 11/06/16 13:41 Mode of Arrival: Ambulatory Information source: Patient TRAVEL OUTSIDE OF THE [place] IN LAST 30 DAYS: No - HPI Patient complains to provider of: Dizziness Onset: Other - 4-5 days Onset/Duration: Persistent Quality of pain: No pain Associated symptoms: None Baseline gait: Walks w/o assistance Notes: Patient is a 55-year-old female with history of diabetes, lupus, hypertension, high cholesterol and arthritis, who presents to the emergency room complaining of 4-5 day history of dizziness, that she feels unsteady with her gait when walking, denies any aggravating or alleviating symptoms, denies any pain anywhere, no headache, no nausea, vomiting or diarrhea, no history of similar symptoms prior to 4-5 days ago, was seen in this emergency room for complaints of chest pain and dizziness recently, states she feels dehydrated and is requesting IV fluids - Related Data Allergies/Adverse Reactions: No Known Allergies Allergy (Verified 11/06/16 13:32) Past Medical History - General Information source: Patient - Social History Smoking Status: Never Smoker Chew tobacco use (# tins/day): No Frequency of alcohol use: None Drug Abuse: None Family History: Arthritis, Hypertension, Malignancy Patient has suicidal ideation: No Patient has homicidal ideation: No - Past Medical History Cardiac Medical History: Reports: Hx Hypercholesterolemia, Hx Hypertension Denies: Hx Heart Attack Endocrine Medical History: Reports: Hx Diabetes Mellitus Type 2 Renal/ Medical History: Denies: Hx Peritoneal Dialysis GI Medical History: Reports: Hx Gastroesophageal Reflux Disease Musculoskeltal Medical History: Reports Hx Arthritis, Reports Hx Fibromyalgia, Reports Hx Musculoskeletal Deformity Psychiatric Medical History: Reports: Hx Anxiety, Hx Depression Past Surgical History: Reports: Hx Cardiac Catheterization, Hx Gynecologic Surgery - BILAT OOPHORECTOMY 2007., Hx Hysterectomy - Immunizations Hx Diphtheria, Pertussis, Tetanus Vaccination: Yes Review of Systems - Review of Systems Constitutional: No symptoms reported EENT: No symptoms reported Cardiovascular: Dizziness Respiratory: No symptoms reported Gastrointestinal: No symptoms reported Genitourinary: No symptoms reported Female Genitourinary: No symptoms reported Musculoskeletal: No symptoms reported Skin: No symptoms reported Hematologic/Lymphatic: No symptoms reported Neurological/Psychological: No symptoms reported -: Yes All other systems reviewed and negative Physical Exam - Vital signs Vitals: Temp Pulse Resp BP Pulse Ox 98.4 F 68 14 140/76 H 98 11/06/16 13:32 11/06/16 13:32 11/06/16 13:32 11/06/16 13:32 11/06/16 13:32 Interpretation: Normal - General General appearance: Appears well, Alert - HEENT Head: Normocephalic, Atraumatic Eyes: Normal Pupils: PERRL - Respiratory Respiratory status: No respiratory distress Chest status: Nontender Breath sounds: Normal Chest palpation: Normal - Cardiovascular Rhythm: Regular Heart sounds: Normal auscultation Murmur: No - Abdominal Inspection: Normal Distension: No distension Bowel sounds: Normal Tenderness: Nontender Organomegaly: No organomegaly - Back Back: Normal, Nontender - Extremities General upper extremity: Normal inspection, Nontender, Normal color, Normal ROM , Normal temperature General lower extremity: Normal inspection, Nontender, Normal color, Normal ROM , Normal temperature, Normal weight bearing. No: Zee's sign - Neurological Neuro grossly intact: Yes Cognition: Normal Orientation: AAOx4 [place] Coma Scale Eye Opening: Spontaneous [place] Coma Scale Verbal: Oriented [place] Coma Scale Motor: Obeys Commands [place] Coma Scale Total: 15 Speech: Normal Motor strength normal: LUE, RUE, LLE, RLE Sensory: Normal - Psychological Associated symptoms: Normal affect, Normal mood - Skin Skin Temperature: Warm Skin Moisture: Dry Skin Color: Normal Course - Re-evaluation Re-evalutation: 11/06/16 16:48 Patient was able to ambulate, she did experience a small amount of dizziness at the end of her walk, however denies any pain or other symptoms, she is noted to have elevated blood sugar, was given IV fluids and insulin, advised to follow- up with her primary care provider or return if symptoms worsen, patient acknowledges understanding and agreement with this plan - Vital Signs Vital signs: Temp Pulse Resp BP Pulse Ox 98.4 F 68 14 140/76 H 98 11/06/16 13:32 11/06/16 13:32 11/06/16 13:32 11/06/16 13:32 11/06/16 13:32 - Laboratory Result Diagrams: 11/06/16 14:12 11/06/16 14:12 Laboratory results interpreted by me: 11/06/16 11/06/16 11/06/16 14:12 14:12 14:12 Seg Neutrophils % 41.4 L Lymphocytes % 48.5 H Potassium 3.5 L Glucose 297 H Urine Glucose (UA) >=500 H Urine Ketones TRACE H Discharge - Discharge Clinical Impression: Dizziness, Hyperglycemia Condition: Stable Disposition: HOME, SELF-CARE Instructions: Dizziness ([facility]), Meclizine ([facility]), Hyperglycemia ([facility]), Control of Diabetes During Illness ([facility]), Diabetes ([facility]) Additional Instructions: Follow up with your primary care provider in one to 2 days. Return to the emergency room immediately if symptoms worsen or any additional concerns. Prescriptions: Meclizine HCl [Antivert 25 mg Tablet] 25 mg PO TID #20 tablet
[2016-11-06] MEDS ORDERED: INSULIN REG, HUMAN 100 UNIT/ML 3 ML VIAL (PYX) IV ONE (16:48)
[2016-11-06 17:27] VITALS: BP 143/78
== END 2016-11-06 17:23 | disposition home or self-care (01) ==
LOC: ER 12:54
DX: R42 Dizziness and giddiness (principal); E11.65 Type 2 diabetes mellitus with hyperglycemia; I10 Essential (primary) hypertension; E78.00 Pure hypercholesterolemia, unspecified; Z90.710 Acquired absence of both cervix and uterus
CPT/HCPCS: 99284; 96360; 36415; 82962; 85025; 80053; 81001; J1815; J7030

== ENCOUNTER → 2016-11-24 | Outpatient (CLI) | payer OTHER ==
[2016-11-24 09:38] LABS: CHOLESTEROL 170.16 mg/dL (0-200); Direct HDL 38 mg/dL (>40); TRIGLYCERIDES 89 mg/dL (<150)
[2016-11-24 09:49] LABS: DIRECT LDL 104 mg/dL (<100)
== END ==
LOC: CCC 07:53
DX: E11.9 Type 2 diabetes mellitus without complications (principal)
CPT/HCPCS: 36415; 80061; 83036

== ENCOUNTER 2017-03-12 18:41 | Observation (INO) | payer OTHER ==
[2017-03-12] MEDS ORDERED: ONDANSETRON HCL INJ/PF 4 MG/2 ML SDV IV ONE (19:07)
[2017-03-12] MEDS ORDERED: PROCHLORPERAZINE EDISYLATE INJ 10 MG/2 ML VIAL IV ONE (19:07)
[2017-03-12] MEDS ORDERED: NORMAL SALINE 1000 ML 1,000 ML IV ONE (19:07)
--- NOTE | 2017-03-12 19:07 | ER Document Report ---
ED Medical Screen (RME) - General Chief Complaint: Chest Pain > 30 Stated Complaint: CHEST PAIN HEADACHE DIZZINESS Time Seen by Provider: 03/12/17 19:06 TRAVEL OUTSIDE OF THE [place] IN LAST 30 DAYS: No - HPI Notes: 03/12/17 19:06 Headache chest pain dizziness ongoing for a week - Related Data Allergies/Adverse Reactions: No Known Allergies Allergy (Verified 03/12/17 18:58) Past Medical History - Past Medical History Cardiac Medical History: Reports: Hx Hypercholesterolemia, Hx Hypertension Denies: Hx Heart Attack Endocrine Medical History: Reports: Hx Diabetes Mellitus Type 2 Renal/ Medical History: Denies: Hx Peritoneal Dialysis GI Medical History: Reports: Hx Gastroesophageal Reflux Disease Musculoskeltal Medical History: Reports Hx Arthritis, Reports Hx Fibromyalgia, Reports Hx Musculoskeletal Deformity Psychiatric Medical History: Reports: Hx Anxiety, Hx Depression Past Surgical History: Reports: Hx Cardiac Catheterization, Hx Gynecologic Surgery - BILAT OOPHORECTOMY 2006., Hx Hysterectomy - Immunizations Hx Diphtheria, Pertussis, Tetanus Vaccination: Yes Review of Systems - Review of Systems Constitutional: Other - Headache chest pain dizziness Physical Exam - Vital signs Vitals: Temp Pulse Resp BP Pulse Ox 99 F 103 H 16 131/81 H 97 03/12/17 18:49 03/12/17 18:49 03/12/17 18:49 03/12/17 18:49 03/12/17 18:49 - General General appearance: Appears well In distress: None - Respiratory Respiratory status: No respiratory distress Chest status: Nontender Breath sounds: Normal Chest palpation: Normal Course - Vital Signs Vital signs: Temp Pulse Resp BP Pulse Ox 99 F 103 H 16 131/81 H 97 03/12/17 18:49 03/12/17 18:49 03/12/17 18:49 03/12/17 18:49 03/12/17 18:49
--- NOTE | 2017-03-12 19:43 | ER Document Report ---
ED General - General Chief Complaint: Chest Pain > 30 Stated Complaint: CHEST PAIN HEADACHE DIZZINESS Time Seen by Provider: 03/12/17 19:06 Mode of Arrival: Ambulatory Information source: Patient Notes: 56 yo htn,dm, hyperlipedemic, RA, CAD, Lupus, chronic fatigue, c/o retrosternal exertional midline sharp chest pain that lasts "can't remember length", intermittent for 1week ( relief when sits down- has been told it could be from Lupus- at [facility]) bad frontal headache ("I can't remember-since yesterday- it is gone now after meds given) and vertigo with staggering for a few days, worse when walking, goes away.. 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 No fever. No URI symptoms. No abd. pain. No shortness of breath. No surgeries. Stress test 1 year , cardiac cath, small blockage in artery (2012), no stent-only meds, [facility]. PCP : [facility]. FH: no CAD. TRAVEL OUTSIDE OF THE [place] IN LAST 30 DAYS: No - Related Data Allergies/Adverse Reactions: No Known Allergies Allergy (Verified 03/12/17 18:58) Home Medications: Current Home Medications Atorvastatin Calcium [Lipitor 40 mg Tablet] 80 mg PO QHS 03/12/17 [History] Canagliflozin [Invokana] 300 mg PO DAILY 03/12/17 [History] Celecoxib 200 mg PO DAILY 03/12/17 [History] Folic Acid 1 mg PO DAILY 03/12/17 [History] Gabapentin 300 mg PO BID 03/12/17 [History] Insulin Glargine,Hum.rec.anlog [Toarnold Solpawan] 34 units SQ DAILY 03/12/17 [ History] Lansoprazole 30 mg PO DAILY 03/12/17 [History] Methotrexate Sodium [Methotrexate] 4 PO WBRKFST 03/12/17 [History] Pioglitazone HCl 30 mg PO 03/12/17 [History] Past Medical History - General Information source: Patient - Social History Smoking Status: Never Smoker Chew tobacco use (# tins/day): No Frequency of alcohol use: None Drug Abuse: None Lives with: Spouse/Significant other Family History: Arthritis, Hypertension, Malignancy Patient has suicidal ideation: No Patient has homicidal ideation: No - Past Medical History Cardiac Medical History: Reports: Hx Coronary Artery Disease, Hx Hypercholesterolemia, Hx Hypertension Endocrine Medical History: Reports: Hx Diabetes Mellitus Type 2 Renal/ Medical History: Denies: Hx Peritoneal Dialysis GI Medical History: Reports: Hx Gastroesophageal Reflux Disease Musculoskeltal Medical History: Reports Hx Arthritis, Reports Hx Fibromyalgia, Reports Hx Musculoskeletal Deformity Psychiatric Medical History: Reports: Hx Anxiety, Hx Depression Past Surgical History: Reports: Hx Cardiac Catheterization, Hx Gynecologic Surgery - BILAT OOPHORECTOMY 2007., Hx Hysterectomy - Immunizations Hx Diphtheria, Pertussis, Tetanus Vaccination: Yes Review of Systems - Review of Systems Constitutional: No symptoms reported EENT: No symptoms reported Cardiovascular: See HPI Respiratory: No symptoms reported Gastrointestinal: No symptoms reported Genitourinary: No symptoms reported Female Genitourinary: No symptoms reported Musculoskeletal: No symptoms reported Skin: No symptoms reported Hematologic/Lymphatic: No symptoms reported Neurological/Psychological: See HPI Physical Exam - Vital signs Vitals: Temp Pulse Resp BP Pulse Ox 99 F 103 H 16 131/81 H 97 03/12/17 18:49 03/12/17 18:49 03/12/17 18:49 03/12/17 18:49 03/12/17 18:49 Interpretation: Normal - General General appearance: Appears well, Alert - HEENT Head: Normocephalic, Atraumatic Eyes: Normal Conjunctiva: Normal Extraocular movements intact: Yes Pupils: PERRL Neck: Supple. No: Lymphadenopathy - Respiratory Respiratory status: No respiratory distress Chest status: Nontender Breath sounds: Normal Chest palpation: Normal - Cardiovascular Rhythm: Regular Heart sounds: Normal auscultation Murmur: No - Abdominal Inspection: Normal Distension: No distension Bowel sounds: Normal Tenderness: Nontender. No: Tender Organomegaly: No organomegaly - Back Back: Normal, Nontender - Extremities General upper extremity: Normal inspection, Nontender, Normal color, Normal ROM , Normal temperature General lower extremity: Normal inspection, Nontender, Normal color, Normal ROM , Normal temperature, Normal weight bearing. No: Zee's sign - Neurological Neuro grossly intact: Yes Cognition: Normal Orientation: AAOx4 Shelby Coma Scale Eye Opening: Spontaneous Shelby Coma Scale Verbal: Oriented Shelby Coma Scale Motor: Obeys Commands Glidden Coma Scale Total: 15 Speech: Normal Motor strength normal: LUE, RUE, LLE, RLE Sensory: Normal - Psychological Associated symptoms: Normal affect, Normal mood - Skin Skin Temperature: Warm Skin Moisture: Dry Skin Color: Normal Skin irregularity: negative: Rash Course - Re-evaluation Re-evalutation: 03/12/17 20:[address] Butterfield get a d-dimer if that is negative admit for chest pain rule out. Chest x-ray is negative, EKG is sinus tachycardia with no acute change, first set of enzymes are negative. 03/12/17 20:34 03/13/17 00:44 CTA is negative. Pt has been chest pain free in ER. dr duval will admit to telemetry observation is 2nd trop is not elevated. Second troponin is negative - Vital Signs Vital signs: Temp Pulse Resp BP Pulse Ox 99 F 103 H 20 126/53 H 96 03/12/17 18:49 03/12/17 18:49 03/12/17 23:00 03/12/17 22:00 03/12/17 22:01 - Laboratory Result Diagrams: 03/12/17 19:20 03/12/17 19:20 Laboratory results interpreted by me: 03/12/17 03/12/17 19:20 19:20 D-Dimer 0.53 H Potassium 3.2 L BUN 21 H Glucose 290 H Creatine Kinase 139 H Discharge - Discharge Clinical Impression: Hypokalemia, Vertigo Diabetes Qualifiers: Diabetes mellitus type: type 2 Diabetes mellitus complication status: with hyperglycemia Diabetes mellitus jail insulin use: with jail use Qualified Code(s): E11.65 - Type 2 diabetes mellitus with hyperglycemia Chest pain Qualifiers: Chest pain type: unspecified Qualified Code(s): R07.9 - Chest pain, unspecified Headache Qualifiers: Headache type: unspecified Headache chronicity pattern: acute headache Intractability: not intractable Qualified Code(s): R51 - Headache Condition: Good Disposition: ADMITTED OBSERVATION Admitting Provider: Hospitalist Unit Admitted: Telemetry
[2017-03-12 19:49] LABS: ABSOLUTE EOSINOPHILS # (AUTO) 0.1 10^3/uL (0.0-0.6); ABSOLUTE LYMPHOCYTES (AUTO) 3.1 10^3/uL (0.5-4.7); ABSOLUTE MONOCYTES (AUTO) 0.5 10^3/uL (0.1-1.4); ABSOLUTE NEUT (AUTO) 3.7 10^3/uL (1.7-8.2); BASOPHILS % (AUTO) 0.5 % (0-2); HEMATOCRIT 43.3 % (36.0-47.0); HGB HCT DIFFERENCE 1.7; LYMPHOCYTES % (AUTO) 41.7 % (13-45); MEAN CORPUSCULAR HEMOGLOBIN 29.4 pg (27.0-33.4); MEAN CORPUSCULAR HGB CONC 34.6 g/dL (32.0-36.0); MEAN CORPUSCULAR VOLUME 85 fl (80-97); MONOCYTES % (AUTO) 6.5 % (3-13); RED BLOOD COUNT 5.09 10^6/uL (3.72-5.28); RED CELL DISTRIBUTION WIDTH 13.8 % (11.5-14.0); SEGMENTED NEUTROPHILS % (AUTO) 49.3 % (42-78); WHITE BLOOD COUNT 7.4 10^3/uL (4.0-10.5)
[2017-03-12 19:53] LABS: ALANINE AMINOTRANSFERASE 52 U/L (9-52); ALBUMIN 4.6 g/dL (3.5-5.0); ALKALINE PHOSPHATASE 106 U/L (38-126); ANION GAP 15 (5-19); ASPARTATE AMINO TRANSFERASE 27 U/L (14-36); BILIRUBIN,DIRECT 0.4 mg/dL (0.0-0.4); BILIRUBIN,TOTAL 0.7 mg/dL (0.2-1.3); BLOOD UREA NITROGEN 21 mg/dL (7-20); CALCIUM 10.1 mg/dL (8.4-10.2); CARBON DIOXIDE 29 mmol/L (22-30); CHLORIDE 98 mmol/L (98-107); CREATINE KINASE 139 U/L (30-135); CREATININE RESULT 0.79 mg/dL (0.52-1.25); GLUCOSE 290 mg/dL (75-110); POTASSIUM 3.2 mmol/L (3.6-5.0); SODIUM 141.5 mmol/L (137-145)
--- NOTE | 2017-03-12 19:53 | RADIOLOGY REPORT (SQ) ---
EXAM DESCRIPTION: CHEST SINGLE VIEW COMPLETED DATE/TIME: 03/12/2017 7:44 pm REASON FOR STUDY: cp COMPARISON: 11/04/2016 EXAM PARAMETERS: NUMBER OF VIEWS: One view. TECHNIQUE: Single frontal radiographic view of the chest acquired. RADIATION DOSE: NA LIMITATIONS: None. FINDINGS: LUNGS AND PLEURA: No opacities, masses or pneumothorax. No pleural effusion. MEDIASTINUM AND HILAR STRUCTURES: No masses. Contour normal. HEART AND VASCULAR STRUCTURES: Heart normal in size. Normal vasculature. BONES: No acute findings. HARDWARE: None in the chest. OTHER: No other significant finding. IMPRESSION: NO ACUTE RADIOGRAPHIC FINDING IN THE CHEST. TECHNICAL DOCUMENTATION: JOB ID: [id number]
[2017-03-12 20:05] LABS: CREATINE KINASE MB 0.76 ng/mL (<4.55); TROPONIN I < 0.012 ng/mL
[2017-03-12] MEDS ORDERED: POTASSIUM CHLORIDE 20 MEQ/15 ML UDCUP PO ONE (20:15)
[2017-03-12] MEDS ORDERED: ASPIRIN 81 MG TABLET, CHEWABLE PO ONE (20:17)
--- NOTE | 2017-03-12 22:05 | EKG REPORT ---
SEVERITY:- ABNORMAL ECG - SINUS TACHYCARDIA PROBABLE LEFT ATRIAL ABNORMALITY PROBABLE LVH WITH SECONDARY REPOL ABNRM : Confirmed by: Lenard Tse 12-Mar-2017 22:05:13
--- NOTE | 2017-03-13 00:08 | RADIOLOGY REPORT (SQ) ---
EXAM DESCRIPTION: CTA CHEST COMPLETED DATE/TIME: 03/12/2017 11:52 pm REASON FOR STUDY: chest pain COMPARISON: None. TECHNIQUE: CT scan of the chest performed using helical scanning technique with dynamic intravenous contrast injection. Images reviewed with lung, soft tissue and bone windows. Reconstructed coronal and sagittal MPR images reviewed. Additional 3 dimensional post-processing performed to develop Maximal Intensity Projection images (NH P). All images stored on PACS. All CT scanners at this facility use dose modulation, iterative reconstruction, and/or weight based d osing when appropriate to reduce radiation dose to as low as reasonably achievable (ALARA). [facility]: Dose Right [facility]: CareDose [facility]: Dose Right [facility]: Teradose 4D [facility]: Adku CONTRAST TYPE AND DOSE: contrast/concentration: Isovue 370.00 mg/ml; Total Contrast Delivered: 75.0 ml; Total Saline Delivered: 110.0 ml Contrast bolus optimized for the pulmonary arteries. Not diagnostic for the aorta. RENAL FUNCTION: BUN 21; creatinine 0.79 RADIATION DOSE: Up-to-date CT equipment and radiation dose reduction techniques were employed. CTDIv ol: 13.2 - 18.4 mGy. DLP: 698 mGy-cm. . LIMITATIONS: None. FINDINGS: LUNGS AND PLEURA: Left lung base scarring. No masses, infiltrates, pneumothorax. No pleu ral effusions, calcifications. AORTA AND GREAT VESSELS: No aneurysm. Contrast bolus not optimized for the aorta. HEART: No pericardial effusion. No significant coronary artery calcifications. PULMONARY ARTERIES: No emboli visualized in the main pulmonary arteries or the segmental branches. HILAR AND MEDIASTINAL STRUCTURES: No identified masses or abnormal nodes. HARDWARE: None in the chest. UPPER ABDOMEN: Left renal parenchymal calculus. No significant findings. Limited exam. THYROID AND OTHER SOFT TISSUES: No masses. No adenopathy. BONES: No acute or significant finding. 3D MIPS: Confirm above findings. OTHER: No other significant finding. IMPRESSION: NORMAL CTA OF THE CHEST. NO PULMONARY EMBOLI. COMMENT: Quality ID # [id number]: Final reports with documentation of one or more dose reduction techniques (e.g., Automated exposure control, adjustment of the mA and/or kV according to patient size, use of iterative reconstruction technique) TECHNICAL DOCUMENTATION: JOB ID: [id number] [employer]- All Rights Reserved
[2017-03-13] MEDS ORDERED: DEXTROSE 50%-WATER 25 GM/50 ML DISP.SYRIN IV PRN ×2 (01:28)
[2017-03-13] MEDS ORDERED: DEXTROSE 40% GEL 15 GM TUBE PO PRN ×2 (01:28)
[2017-03-13] MEDS ORDERED: INSULIN LISPRO 100 UNIT/ML 3 ML VIAL SUBCUT PRN (01:28)
[2017-03-13] MEDS ORDERED: GLUCAGON,HUMAN RECOMB 1 MG INJ IM PRN (01:28)
[2017-03-13] MEDS ORDERED: NITROGLYCERIN 0.4 MG/TAB 25 TAB/BOTTLE SL PRN (01:28)
[2017-03-13] MEDS ORDERED: ATORVASTATIN CALCIUM 80 MG TABLET PO SCH (01:30)
[2017-03-13] MEDS ORDERED: HYDRALAZINE HCL INJ/PF 20 MG/1 ML SDV IV PRN (01:31)
[2017-03-13] MEDS ORDERED: HEPARIN SOD (PORCINE) 5,000 UNIT/ML 1 ML SYRINGE SUBCUT SCH (06:00)
--- NOTE | 2017-03-13 06:19 | PDOC H&P ---
History of Present Illness Admission Date/PCP: 03/13/17 01:28 Patient complains of: Chest pain History of Present Illness: REJI BROOKE is a 56 year old female with a past medical history of coronary artery disease, insulin-dependent diabetes, hypertension, dyslipidemia, GERD, chronic constipation and depression. She did her usual state of health until approximately 12 hours prior to presentation having until, 3 out of 5, nonradiating, intermittent retrosternal chest pain occurring with exertion and relieved by rest prompting him to seek evaluation emergency room she denies previous episode. She admits several recent changes in medication for diabetes. She currently denies chest pain nausea vomiting diaphoresis or palpitations and is referred to the hospitalist for evaluation. Patient also has a component of chest wall pain which is reproducible but the patient verifies this is not pain for which she seeks evaluation though the pain is superimposed on the same area of the chest. Past Medical History Cardiac Medical History: Reports: Coronary Artery Disease, Hyperlipidema, Hypertension Denies: Myocardial Infarction Endocrine Medical History: Reports: Diabetes Mellitus Type 2, Obesity GI Medical History: Reports: Gastroesophageal Reflux Disease Musculoskeltal Medical History: Reports: Arthritis, Fibromyalgia Psychiatric Medical History: Reports: Depression Past Surgical History Past Surgical History: Reports: Cardiac Catheterization, Hysterectomy Social History Information Source: Patient Lives with: Spouse/Significant other Smoking Status: Never Smoker Drugs: None - Advance Directive Resuscitation Status: Full Code Family History Family History: Arthritis, Hypertension, Malignancy Parental Family History Reviewed: Yes Children Family History Reviewed: Yes Sibling(s) Family History Reviewed.: Yes Medication/Allergy Home Medications: Aspirin [Ecotrin 81 mg EC Tablet] 81 mg PO DAILY 01/04/13 Hydrochlorothiazide 25 mg PO DAILY 01/04/13 Metformin HCl [Glucophage 500 mg Tablet] 500 mg PO BID 01/04/13 Metoprolol Succinate [Toprol XL 100 mg Tablet] 100 mg PO DAILY 01/04/13 Atorvastatin Calcium [Lipitor 40 mg Tablet] 80 mg PO QHS 03/12/17 Canagliflozin [Invokana] 300 mg PO DAILY 03/12/17 Celecoxib 200 mg PO DAILY 03/12/17 Folic Acid 1 mg PO DAILY 03/12/17 Gabapentin 300 mg PO BID 03/12/17 Insulin Glargine,Hum.rec.anlog [Fatou Michel] 34 units SQ DAILY 09/16/17 Lansoprazole 30 mg PO DAILY 03/12/17 Methotrexate Sodium [Methotrexate] 4 PO WBRKFST 03/12/17 Pioglitazone HCl 30 mg PO 03/12/17 Allergies/Adverse Reactions: No Known Allergies Allergy (Verified 03/12/17 18:58) Review of Systems Constitutional: ABSENT: chills, fever(s), headache(s), weight gain, weight loss Eyes: ABSENT: visual disturbances Ears: ABSENT: hearing changes Cardiovascular: ABSENT: chest pain, dyspnea on exertion, edema, orthropnea, palpitations Respiratory: ABSENT: cough, hemoptysis Gastrointestinal: ABSENT: abdominal pain, constipation, diarrhea, hematemesis, hematochezia, nausea, vomiting Genitourinary: ABSENT: dysuria, hematuria Musculoskeletal: ABSENT: joint swelling Integumentary: ABSENT: rash, wounds Neurological: ABSENT: abnormal gait, abnormal speech, confusion, dizziness, focal weakness, syncope Psychiatric: ABSENT: anxiety, depression, homidical ideation, suicidal ideation Endocrine: ABSENT: cold intolerance, heat intolerance, polydipsia, polyuria Hematologic/Lymphatic: ABSENT: easy bleeding, easy bruising Physical Exam Vital Signs: Temp Pulse Resp BP Pulse Ox 97.8 F 80 18 138/68 H 98 03/13/17 02:36 03/13/17 02:36 03/13/17 02:36 03/13/17 02:36 03/13/17 02:36 General appearance: PRESENT: no acute distress, well-developed, well-nourished Head exam: PRESENT: atraumatic, normocephalic Eye exam: PRESENT: conjunctiva pink, EOMI, PERRLA. ABSENT: scleral icterus Ear exam: PRESENT: normal external ear exam Mouth exam: PRESENT: moist, tongue midline Neck exam: ABSENT: carotid bruit, JVD, lymphadenopathy, thyromegaly Respiratory exam: PRESENT: clear to auscultation yohan. ABSENT: rales, rhonchi, wheezes Cardiovascular exam: PRESENT: RRR. ABSENT: diastolic murmur, rubs, systolic murmur Pulses: PRESENT: normal dorsalis pedis pul Vascular exam: PRESENT: normal capillary refill GI/Abdominal exam: PRESENT: normal bowel sounds, soft. ABSENT: distended, guarding, mass, organolmegaly, rebound, tenderness Torso Front/Back Image: 1 - Chest wall pain reproducible by palpation Rectal exam: PRESENT: deferred Extremities exam: PRESENT: full ROM. ABSENT: calf tenderness, clubbing, pedal edema Neurological exam: PRESENT: alert, awake, oriented to person, oriented to place , oriented to time, oriented to situation, CN II-XII grossly intact. ABSENT: motor sensory deficit Psychiatric exam: PRESENT: appropriate affect, normal mood. ABSENT: homicidal ideation, suicidal ideation Skin exam: PRESENT: dry, intact, warm. ABSENT: cyanosis, rash Results Impressions: Chest X-Ray 03/12/17 19:07 IMPRESSION: NO ACUTE RADIOGRAPHIC FINDING IN THE CHEST. Chest/Abdomen CTA 03/12/17 22:17 IMPRESSION: NORMAL CTA OF THE CHEST. NO PULMONARY EMBOLI. 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 I Will evaluate education reconciliation, TSH. Yet refuses trial SSRI. - Time Time Spent: 50 to 70 Minutes
[2017-03-13 06:41] LABS: CHOLESTEROL 155.48 mg/dL (0-200); Direct HDL 33 mg/dL (>40); TRIGLYCERIDES 74 mg/dL (<150)
[2017-03-13 06:51] LABS: DIRECT LDL 108 mg/dL (<100)
[2017-03-13 06:55] LABS: CREATINE KINASE MB 0.63 ng/mL (<4.55)
[2017-03-13 06:59] LABS: TROPONIN I < 0.012 ng/mL
[2017-03-13 08:24] VITALS: BP 123/59
[2017-03-13] MEDS ORDERED: LANSOPRAZOLE 30 MG TAB.RAP.DR PO SCH (10:00)
[2017-03-13] MEDS ORDERED: ASPIRIN 81 MG TABLET, ENT COATED PO SCH (10:00)
[2017-03-13] MEDS ORDERED: GABAPENTIN 300 MG CAPSULE PO SCH (10:00)
[2017-03-13] MEDS ORDERED: DOCUSATE SODIUM 100 MG CAPSULE PO SCH (10:00)
[2017-03-13] MEDS ORDERED: INSULIN GLARGINE,HUM.REC.ANLOG 1,000 UNIT/10 ML UNIT SUBCUT SCH (10:00)
--- NOTE | 2017-03-13 12:20 | PDOC DISCHARGE SUMMARY ---
General - Admit/Disc Date/PCP Admission Date/Primary Care Provider: 03/13/17 01:28 Discharge Date: 03/13/17 - Discharge Diagnosis (1) Chest pain Is this a current diagnosis for this admission?: Yes Summary: Patient had negative cardiac enzymes. Chest pain most likely is costochondritis given the nature of this pain. (2) Coronary artery disease Is this a current diagnosis for this admission?: Yes Summary: Patient reports having a cardiac catheterization in 2012 and was told she had minimal blockage of the right coronary artery. (3) Diabetes Is this a current diagnosis for this admission?: Yes (4) Hypokalemia Is this a current diagnosis for this admission?: Yes (5) Hyperlipidemia Is this a current diagnosis for this admission?: Yes (6) Hypertension Is this a current diagnosis for this admission?: Yes - Additional Information Resuscitation Status: Full Code Discharge Diet: Cardiac, Diabetic Discharge Activity: Activity As Tolerated Home Medications: Aspirin [Ecotrin 81 mg EC Tablet] 81 mg PO DAILY 01/04/13 Hydrochlorothiazide 25 mg PO DAILY 01/04/13 Atorvastatin Calcium [Lipitor 40 mg Tablet] 80 mg PO QHS 03/12/17 Canagliflozin [Invokana] 300 mg PO DAILY 03/12/17 Celecoxib 200 mg PO DAILY 03/12/17 Folic Acid 1 mg PO DAILY 03/12/17 Gabapentin 300 mg PO Q12 03/12/17 Insulin Glargine,Hum.rec.anlog [Fatou Michel] 34 units SQ QHS 03/12/17 Lansoprazole 30 mg PO DAILY 03/12/17 Pioglitazone HCl 30 mg PO DAILY 03/12/17 Amlodipine Besylate [Norvasc 5 mg Tablet] 5 mg PO DAILY 03/13/17 Exenatide Microspheres [Bydureon Pen] 2 mg INJ TH@1000 03/13/17 Metformin HCl [Metformin HCl ER] 500 mg PO BID 03/13/17 Methotrexate Sodium [Methotrexate] 10 mg PO MO@1000 03/13/17 Metoprolol Tartrate [Lopressor 100 mg Tablet] 150 mg PO Q12 03/13/17 History of Present Illness History of Present Illness: REJI BROOKE is a 56 year old female who reports a history of coronary artery disease and had a cath in 2012 until she had a minimal stenosis of the right coronary artery who presented with atypical chest pain. The patient reports to me that the pain was sharp substernal and did not radiate. The patient told the admitting physician that it occurred with exertion relieved by rest however she told me that it was more positional in nature. The patient denied having any palpitations or tachycardia. She denies any dyspnea on exertion. Patient is admitted for workup of chest pain. Hospital Course Hospital Course: REJI BROOKE is a 56 year old female who reports a history of coronary artery disease and had a cath in 2012 until she had a minimal stenosis of the right coronary artery who presented with atypical chest pain. The patient reports to me that the pain was sharp substernal and did not radiate. The patient told the admitting physician that it occurred with exertion relieved by rest however she told me that it was more positional in nature. The patient was monitored on telemetry and had negative cardiac enzymes. She has not had any further chest pain. The patient is to be scheduled for an outpatient stress test. Her other medical problems all were stable during this hospitalization. Physical Exam Vital Signs: Temp Pulse Resp BP Pulse Ox 98.4 F 77 18 123/59 L 99 03/13/17 11:02 03/13/17 11:02 03/13/17 11:02 03/13/17 07:28 03/13/17 11:02 General appearance: PRESENT: no acute distress Eye exam: PRESENT: conjunctiva pink. ABSENT: scleral icterus Ear exam: PRESENT: normal external ear exam Mouth exam: PRESENT: moist, tongue midline Neck exam: ABSENT: JVD Respiratory exam: PRESENT: clear to auscultation yohan. ABSENT: rales, rhonchi, wheezes Cardiovascular exam: PRESENT: RRR. ABSENT: diastolic murmur, rubs, systolic murmur GI/Abdominal exam: PRESENT: normal bowel sounds, soft. ABSENT: distended, guarding, mass, organolmegaly, rebound, tenderness Rectal exam: PRESENT: deferred Neurological exam: PRESENT: alert, awake, oriented to person, oriented to place , oriented to time, oriented to situation, CN II-XII grossly intact. ABSENT: motor sensory deficit Psychiatric exam: PRESENT: appropriate affect Skin exam: PRESENT: dry, intact, warm. ABSENT: cyanosis, rash Results Laboratory Results: 03/13/17 03/13/17 06:04 06:04 Magnesium 1.9 Triglycerides 74 Cholesterol 155.48 LDL Cholesterol Direct 108 H VLDL Cholesterol 15.0 HDL Cholesterol 33 L 03/13/17 06:04 CK-MB (CK-2) 0.63 Troponin I < 0.012 Impressions: Chest X-Ray 03/12/17 19:07 IMPRESSION: NO ACUTE RADIOGRAPHIC FINDING IN THE CHEST. Chest/Abdomen CTA 03/12/17 22:17 IMPRESSION: NORMAL CTA OF THE CHEST. NO PULMONARY EMBOLI. Qualifiers PATEINT BEING DISCHARGED WITH ANY OF THE FOLLOWING DIAGNOSIS?: No Plan Discharge Plan: Patient is discharged home. Will follow up with an outpatient stress test. Time Spent: Less than 30 Minutes
== END 2017-03-13 12:01 | disposition home or self-care (01) ==
LOC: ER 18:41 → EH 03-13 01:04 → UNDOADMOB 03-13 01:04 → EH 03-13 01:28 → 3W 03-13 02:30
PROVIDERS: ADMIT Internal Medicine; ATTEND Internal Medicine
DX: R07.2 Precordial pain (principal); I25.10 Atherosclerotic heart disease of native coronary artery without angina pectoris; E11.65 Type 2 diabetes mellitus with hyperglycemia; E87.6 Hypokalemia; E78.5 Hyperlipidemia, unspecified; I10 Essential (primary) hypertension; F32.9 Major depressive disorder, single episode, unspecified; K21.9 Gastro-esophageal reflux disease without esophagitis; M06.9 Rheumatoid arthritis, unspecified; R51 Headache; R42 Dizziness and giddiness; Z79.82 Long term (current) use of aspirin; Z79.4 Long term (current) use of insulin; Z79.899 Other long term (current) drug therapy; Z90.710 Acquired absence of both cervix and uterus; Z82.49 Family history of ischemic heart disease and other diseases of the circulatory system
CPT/HCPCS: 93005; 99285; 96361; 96374; 96375; 36415 ×2; 82553 ×2; 82962; 82550; 83735; 85025; 80053; 84484 ×2; 83036; 85379; 80061; 71010; 71275; 93010; J1644; J0780; J3490; J2405; J7030; J1815

== ENCOUNTER → 2017-03-15 | Outpatient (CLI) | payer OTHER ==
--- NOTE | 2017-03-15 15:33 | WOMENS IMAGING REPORT ---
EXAM DESCRIPTION: BILAT DIAGNOSTIC MAMMO W/CAD; U/S BREAST UNILAT LIMITED COMPLETED DATE/TIME: 03/15/2017 12:49 pm; 03/15/2017 2:49 pm REASON FOR STUDY: LUMP LEFT BREAST; N63; PALPABLE LUMP LEFT BREAST; N63 N63 UNSPECIFIED LUMP IN JN AST COMPARISON: 02/14/2014 and 10/06/2011. TECHNIQUE: Standard craniocaudal and mediolateral oblique views of each breast recorded using digita l acquisition. Additional images of the left breast include a true lateral image and spot compression MLO image. LIMITATIONS: None. FINDINGS: RIGHT BREAST MASSES: No suspicious masses. CALCIFICATIONS: No new or suspicious calcifications. ARCHITECTURAL DISTORTION: None. DEVELOPING DENSITY: None. ASYMMETRY: None noted. OTHER: No other significant findings. LEFT BREAST MASSES: No suspicious masses. CALCIFICATIONS: No new or suspicious calcifications. ARCHITECTURAL DISTORTION: None. DEVELOPING DENSITY: None. ASYMMETRY: None noted. OTHER: No other significant finding. Read with the assistance of CAD: .[facility] - R2 Cenova Version 1.3 .[facility] - R2 Cenova Version 1.3 .[facility] - R2 Cenova Version 2.4 .[facility] - R2 Cenova Version 2.4 .[facility] - R2 Cashier Checker Version 9.2 BREAST ULTRASOUND: TECHNIQUE: Static and dynamic grayscale images acquired of the left breast in the specific areas of c linical/mammographic concern. Selected color Doppler images recorded. ELASTOGRAPHY PERFORMED: No. LIMITATIONS: None. FINDINGS: MASS: No mass identified. Normal glandular tissue. ELASTOGRAPHY CHARACTERISTICS: Not applicable. OTHER: No other significant finding. IMPRESSION: Stable mammographic appearance of both breasts. No worrisome mammographic or sonographi c finding in the left breast in the area of concern. BREAST DENSITY: b. There are scattered areas of fibroglandular density. BIRAD: 1 Negative. RECOMMENDATION: RECOMMENDED FOLLOW UP: Birads 1 or 2: No breast imaging finding to explain the patie nt's presenting complaint. Further intervention should be based on the degree of clinical suspicion. SPECIFIC INTERVENTION/IMAGING/CONSULTATION RECOMMENDED:No additional intervention/ imaging/consultati on needed at this time. COMMUNICATION:The negative/benign results were communicated to the patient. COMMENT: The patient has been notified of the results by letter per MQSA requirements. Additional no tification policies are in place for contacting patient with suspicious or incomplete findings. Quality ID #[id number]: [employer] recommends an annual screening mammogram for women aged 40 years or over. This facility utilizes a reminder system to ensure that all patients receive reminder letters, and/or direct phone calls for appointments. This includes reminders for routine scr eening mammograms, diagnostic mammograms, or other Breast Imaging Interventions when appropriate. Th is patient will be placed in the appropriate reminder system. The [employer] (ACR) has developed recommendations for screening MRI of the breast s in certain patient populations, to be used in conjunction with mammography. Breast MRI surveillanc e may be appropriate for women with more than 20% lifetime risk of developing breast cancer as deter mined by genetic testing, significant family history of the disease, or history of mantle radiation f or Hodgkins Disease. ACR Practice Guidelines 2008. TECHNICAL DOCUMENTATION: FINDING NUMBER: (1) ASSESSMENT: (1) JOB ID: [id number] [employer]- All Rights Reserved
--- NOTE | 2017-03-15 15:33 | WOMENS IMAGING REPORT ---
EXAM DESCRIPTION: BILAT DIAGNOSTIC MAMMO W/CAD; U/S BREAST UNILAT LIMITED COMPLETED DATE/TIME: 03/15/2017 12:49 pm; 03/15/2017 2:49 pm REASON FOR STUDY: LUMP LEFT BREAST; N63; PALPABLE LUMP LEFT BREAST; N63 N63 UNSPECIFIED LUMP IN JN AST COMPARISON: 02/14/2014 and 10/06/2011. TECHNIQUE: Standard craniocaudal and mediolateral oblique views of each breast recorded using digita l acquisition. Additional images of the left breast include a true lateral image and spot compression MLO image. LIMITATIONS: None. FINDINGS: RIGHT BREAST MASSES: No suspicious masses. CALCIFICATIONS: No new or suspicious calcifications. ARCHITECTURAL DISTORTION: None. DEVELOPING DENSITY: None. ASYMMETRY: None noted. OTHER: No other significant findings. LEFT BREAST MASSES: No suspicious masses. CALCIFICATIONS: No new or suspicious calcifications. ARCHITECTURAL DISTORTION: None. DEVELOPING DENSITY: None. ASYMMETRY: None noted. OTHER: No other significant finding. Read with the assistance of CAD: .[facility] - R2 Cenova Version 1.3 .[facility] Imaging - R2 Cenova Version 1.3 .[facility] - R2 Cenova Version 2.4 .[facility] [place] - R2 Cenova Version 2.4 .[facility] - R2 Golf Sales Manager Version 9.2 BREAST ULTRASOUND: TECHNIQUE: Static and dynamic grayscale images acquired of the left breast in the specific areas of c linical/mammographic concern. Selected color Doppler images recorded. ELASTOGRAPHY PERFORMED: No. LIMITATIONS: None. FINDINGS: MASS: No mass identified. Normal glandular tissue. ELASTOGRAPHY CHARACTERISTICS: Not applicable. OTHER: No other significant finding. IMPRESSION: Stable mammographic appearance of both breasts. No worrisome mammographic or sonographi c finding in the left breast in the area of concern. BREAST DENSITY: b. There are scattered areas of fibroglandular density. BIRAD: 1 Negative. RECOMMENDATION: RECOMMENDED FOLLOW UP: Birads 1 or 2: No breast imaging finding to explain the patie nt's presenting complaint. Further intervention should be based on the degree of clinical suspicion. SPECIFIC INTERVENTION/IMAGING/CONSULTATION RECOMMENDED:No additional intervention/ imaging/consultati on needed at this time. COMMUNICATION:The negative/benign results were communicated to the patient. COMMENT: The patient has been notified of the results by letter per MQSA requirements. Additional no tification policies are in place for contacting patient with suspicious or incomplete findings. Quality ID #[id number]: [employer] recommends an annual screening mammogram for women aged 40 years or over. This facility utilizes a reminder system to ensure that all patients receive reminder letters, and/or direct phone calls for appointments. This includes reminders for routine scr eening mammograms, diagnostic mammograms, or other Breast Imaging Interventions when appropriate. Th is patient will be placed in the appropriate reminder system. [employer] (ACR) has developed recommendations for screening MRI of the breast s in certain patient populations, to be used in conjunction with mammography. Breast MRI surveillanc e may be appropriate for women with more than 20% lifetime risk of developing breast cancer as deter mined by genetic testing, significant family history of the disease, or history of mantle radiation f or Hodgkins Disease. ACR Practice Guidelines 2008. TECHNICAL DOCUMENTATION: FINDING NUMBER: (1) ASSESSMENT: (1) JOB ID: [id number] [employer]- All Rights Reserved
== END ==
LOC: WI 11:58
DX: N63 Unspecified lump in breast (principal)
CPT/HCPCS: 76642; G0204; 77066

== ENCOUNTER 2017-06-14 18:21 | Emergency (ER) | payer SELFPAY ==
[2017-06-14 18:52] LABS: APPEARANCE,URINE CLEAR; BILIRUBIN,URINE NEGATIVE (NEGATIVE); GLUCOSE, URINE >=500 mg/dL (NEGATIVE); KETONES,URINE NEGATIVE (NEGATIVE); LEUKOCYTE ESTERASE,URINE NEGATIVE (NEGATIVE); NITRITE,URINE NEGATIVE (NEGATIVE); PROTEIN,URINE NEGATIVE (NEGATIVE); URINE SPECIFIC GRAVITY 1.036; UROBILINOGEN,URINE NEGATIVE mg/dL (<2.0)
--- NOTE | 2017-06-14 19:13 | ER Document Report ---
ED Medical Screen (RME) - General Chief Complaint: Lower Abdominal Pain Stated Complaint: ABDOMINAL PAIN Time Seen by Provider: 06/14/17 19:11 Notes: Patient states that abdominal cramping pain. She states he gets a little bit better with urination but does not go away. She also states that she has been depressed and thinking of suicide but has no current plan. She states this is due to recently losing her job and being homeless. She states currently though she has been able to obtain an apartment. TRAVEL OUTSIDE OF THE [place] IN LAST 30 DAYS: No - Related Data Allergies/Adverse Reactions: No Known Allergies Allergy (Verified 06/14/17 18:23) Past Medical History - Social History Chew tobacco use (# tins/day): No Frequency of alcohol use: None Drug Abuse: None - Past Medical History Cardiac Medical History: Reports: Hx Coronary Artery Disease, Hx Hypercholesterolemia, Hx Hypertension Denies: Hx Heart Attack Endocrine Medical History: Reports: Hx Diabetes Mellitus Type 2 Renal/ Medical History: Denies: Hx Peritoneal Dialysis GI Medical History: Reports: Hx Gastroesophageal Reflux Disease Musculoskeltal Medical History: Reports Hx Arthritis, Reports Hx Fibromyalgia, Reports Hx Musculoskeletal Deformity Psychiatric Medical History: Reports: Hx Anxiety, Hx Depression Past Surgical History: Reports: Hx Cardiac Catheterization, Hx Gynecologic Surgery - BILAT OOPHORECTOMY 2006., Hx Hysterectomy - Immunizations Hx Diphtheria, Pertussis, Tetanus Vaccination: Yes Physical Exam - Vital signs Vitals: Temp Pulse Resp BP Pulse Ox 98.4 F 83 24 H 145/74 H 96 06/14/17 18:45 06/14/17 18:45 06/14/17 18:45 06/14/17 18:45 06/14/17 18:45 Course - Vital Signs Vital signs: Temp Pulse Resp BP Pulse Ox 98.4 F 83 24 H 145/74 H 96 06/14/17 18:45 06/14/17 18:45 06/14/17 18:45 06/14/17 18:45 06/14/17 18:45 - Laboratory Laboratory results interpreted by me: 06/14/17 18:32 Urine Glucose (UA) >=500 H
[2017-06-14 19:49] LABS: ABSOLUTE EOSINOPHILS # (AUTO) 0.1 10^3/uL (0.0-0.6); ABSOLUTE LYMPHOCYTES (AUTO) 3.1 10^3/uL (0.5-4.7); ABSOLUTE MONOCYTES (AUTO) 0.5 10^3/uL (0.1-1.4); ABSOLUTE NEUT (AUTO) 2.5 10^3/uL (1.7-8.2); BASOPHILS % (AUTO) 0.6 % (0-2); EOSINOPHILS % (AUTO) 2.2 % (0-6); HEMATOCRIT 43.1 % (36.0-47.0); HEMOGLOBIN 14.8 g/dL (12.0-15.5); HGB HCT DIFFERENCE 1.3; LYMPHOCYTES % (AUTO) 49.1 % (13-45); MEAN CORPUSCULAR HEMOGLOBIN 29.4 pg (27.0-33.4); MEAN CORPUSCULAR HGB CONC 34.3 g/dL (32.0-36.0); MEAN CORPUSCULAR VOLUME 86 fl (80-97); MONOCYTES % (AUTO) 8.4 % (3-13); RED BLOOD COUNT 5.03 10^6/uL (3.72-5.28); RED CELL DISTRIBUTION WIDTH 13.6 % (11.5-14.0); SEGMENTED NEUTROPHILS % (AUTO) 39.7 % (42-78); WHITE BLOOD COUNT 6.3 10^3/uL (4.0-10.5)
[2017-06-14 20:03] LABS: ALANINE AMINOTRANSFERASE 34 U/L (9-52); ALBUMIN 4.2 g/dL (3.5-5.0); ALKALINE PHOSPHATASE 96 U/L (38-126); ANION GAP 15 (5-19); ASPARTATE AMINO TRANSFERASE 18 U/L (14-36); BILIRUBIN,DIRECT 0.1 mg/dL (0.0-0.4); BILIRUBIN,TOTAL 0.3 mg/dL (0.2-1.3); BLOOD UREA NITROGEN 19 mg/dL (7-20); CALCIUM 9.8 mg/dL (8.4-10.2); CARBON DIOXIDE 28 mmol/L (22-30); CHLORIDE 102 mmol/L (98-107); CREATININE RESULT 0.94 mg/dL (0.52-1.25); GLUCOSE 204 mg/dL (75-110); POTASSIUM 3.7 mmol/L (3.6-5.0); SODIUM 145.1 mmol/L (137-145)
[2017-06-14] MEDS ORDERED: OXYBUTYNIN CHLORIDE 5 MG TABLET PO ONE (20:32)
--- NOTE | 2017-06-14 20:32 | ER Document Report ---
ED General - General Chief Complaint: Lower Abdominal Pain Stated Complaint: ABDOMINAL PAIN Time Seen by Provider: 06/14/17 19:11 Notes: Patient is a 56-year-old female who presents with several years of chronic lower abdominal and back pain that she states is been worse in the last 2 weeks. She states that particular when her bladder is full she feels like she has spasming pain to the lower abdomen. It is described as a constant, intermittently worsening cramping pain to the low abdomen. She states that her urination the pain moderately improves this does not completely resolve. She denies any dysuria, hematuria fever or flank pain. She attempted to see her primary care clinic today but was referred to the emergency department as he did not have any available appointments. TRAVEL OUTSIDE OF THE [place] IN LAST 30 DAYS: No - Related Data Allergies/Adverse Reactions: No Known Allergies Allergy (Verified 06/14/17 18:23) Past Medical History - General Information source: Patient - Social History Smoking Status: Never Smoker Chew tobacco use (# tins/day): No Frequency of alcohol use: None Drug Abuse: None Lives with: Alone Family History: Arthritis, Hypertension, Malignancy Patient has suicidal ideation: Yes - no plan Patient has homicidal ideation: No - Past Medical History Cardiac Medical History: Reports: Hx Coronary Artery Disease, Hx Hypercholesterolemia, Hx Hypertension Denies: Hx Heart Attack Endocrine Medical History: Reports: Hx Diabetes Mellitus Type 2 Renal/ Medical History: Denies: Hx Peritoneal Dialysis GI Medical History: Reports: Hx Gastroesophageal Reflux Disease Musculoskeltal Medical History: Reports Hx Arthritis, Reports Hx Fibromyalgia, Reports Hx Musculoskeletal Deformity Psychiatric Medical History: Reports: Hx Anxiety, Hx Depression Past Surgical History: Reports: Hx Cardiac Catheterization, Hx Gynecologic Surgery - BILAT OOPHORECTOMY 2006., Hx Hysterectomy - Immunizations Hx Diphtheria, Pertussis, Tetanus Vaccination: Yes Review of Systems - Review of Systems Notes: Constitutional: Negative for fever. HENT: Negative for sore throat. Eyes: Negative for visual changes. Cardiovascular: Negative for chest pain. Respiratory: Negative for shortness of breath. Gastrointestinal: Positive for abdominal pain Genitourinary: Negative for dysuria. Musculoskeletal: Positive for back pain. Skin: Negative for rash. Neurological: Negative for headaches, weakness or numbness. 10 point ROS negative except as marked above and in HPI. Physical Exam - Vital signs Vitals: Temp Pulse Resp BP Pulse Ox 98.4 F 83 24 H 145/74 H 96 06/14/17 18:45 06/14/17 18:45 06/14/17 18:45 06/14/17 18:45 06/14/17 18:45 Interpretation: Tachypneic Notes: PHYSICAL EXAMINATION: GENERAL: Well-appearing, well-nourished and in no acute distress. HEAD: Atraumatic, normocephalic. EYES: Pupils equal round and reactive to light, extraocular movements intact, sclera anicteric, conjunctiva are normal. ENT: nares patent, oropharynx clear without exudates. Moist mucous membranes. NECK: Normal range of motion, supple without lymphadenopathy LUNGS: Breath sounds clear to auscultation bilaterally and equal. No wheezes rales or rhonchi. HEART: Regular rate and rhythm without murmurs ABDOMEN: Soft, nontender, normoactive bowel sounds. No guarding, no rebound. No masses appreciated. EXTREMITIES: Normal range of motion, no pitting or edema. No cyanosis. NEUROLOGICAL: No focal neurological deficits. Moves all extremities spontaneously and on command. PSYCH: Normal mood, normal affect. SKIN: Warm, Dry, normal turgor, no rashes or lesions noted. Course - Re-evaluation Re-evalutation: 06/14/17 20:32 Patient presents with multiple vague complaints that did not appear to be concerning for any acute life-threatening pathology. Vitals are within normal limits at triage and at time of discharge. Physical examination is unremarkable. Patient has tolerated oral intake without difficulty. Patient was not noted to be in distress at any point during their ER visit. At this time, based on the reassuring evaluation, I do not suspect an acute LA, pulmonary embolus, aortic dissection, acute intra-abdominal pathology, stroke, or sepsis. Patient reports that her lower abdominal and back pain is chronic and is been present for years. She notes the only difference that prompted her to come to the emergency department today is that she was worried she might have a urinary tract infection as she noted the pain was worse than usual particularly when she felt like her bladder was full. Labs and urinalysis are otherwise unremarkable and do not demonstrate any evidence of an acute urinary tract infection. Will try the patient on oxybutynin for bladder spasms as her clinical history does appear consistent with this given her report that the pain is most severe when she has not urinated for a period of time. Patient also screen positive for suicidality in triage but this is not the purpose of her visit today. On my assessment, patient denies any acute suicidal ideation and denies any plan or intention to complete suicide. She states that she has had intermittent passive suicidal ideation for several months due to multiple social circumstances which she reports actually have been significantly improving the last 2 months. She identifies her grandchildren and family as a preventative factor from completion of suicide. She does not meet involuntary commitment criteria given her lack of any intention or plan to complete suicide as well as her report of not being actively suicidal. I have encouraged her to follow up with outpatient mental health and we have reviewed suicide return precautions. She has contracted for safety. Will discharge with return precautions and follow-up recommendations. Verbal discharge instructions given a the bedside and opportunity for questions given. Medication warnings reviewed. Patient is in agreement with this plan and has verbalized understanding of return precautions and the need for primary care follow-up in the next 24-72 hours. - Vital Signs Vital signs: Temp Pulse Resp BP Pulse Ox 98.5 F 85 20 137/80 H 97 06/14/17 21:46 06/14/17 21:46 06/14/17 21:46 06/14/17 21:46 06/14/17 21:46 - Laboratory Result Diagrams: 06/14/17 19:30 06/14/17 19:30 Laboratory results interpreted by me: 06/14/17 06/14/17 06/14/17 18:32 19:30 19:30 Seg Neutrophils % 39.7 L Lymphocytes % 49.1 H Sodium 145.1 H Glucose 204 H Urine Glucose (UA) >=500 H Discharge - Discharge Clinical Impression: Chronic abdominal pain, Bladder spasms Condition: Good Disposition: HOME, SELF-CARE Additional Instructions: You have been seen in the Emergency Department (ED) for abdominal pain. Your evaluation did not identify a clear cause of your symptoms but was generally reassuring. Your being started on a medication called oxybutynin which you can take for feelings of bladder spasming. Please follow up with your doctor as soon as possible regarding today's emergent visit and the symptoms that are bothering you. Return to the ED if your abdominal pain worsens or fails to improve, you develop bloody vomiting, bloody diarrhea, you are unable to tolerate fluids due to vomiting, fever greater than 101, or other symptoms that concern you. Please return if you have thoughts of wanting to hurt yourself, hurt others, or have any other symptoms that are concerning to you. Prescriptions: Oxybutynin Chloride 5 mg PO Q6HP PRN #30 tablet PRN Reason: Referrals: [facility] [Primary Care Provider] - Follow up as needed
[2017-06-14 21:47] VITALS: BP 137/80
== END 2017-06-14 21:13 | disposition home or self-care (01) ==
LOC: ER 18:21
DX: N32.89 Other specified disorders of bladder (principal); R10.30 Lower abdominal pain, unspecified; G89.29 Other chronic pain; M54.9 Dorsalgia, unspecified
CPT/HCPCS: 36415; 80053; 81001; 85025; 99284

== ENCOUNTER 2017-07-26 07:10 | Day surgery (SDC) | payer OTHER ==
[2017-07-26] MEDS ORDERED: NITROGLYCERIN IV PRN ×3 (08:00)
[2017-07-26] MEDS ORDERED: RADIAL COCKTAIL SYRINGE 10 ML IV PRN ×4 (08:00)
[2017-07-26] MEDS ORDERED: HEPARIN SODIUM,PORCINE/NS/PF 2,000 UNIT/1,000 ML RTUINJ IV ONE (08:00)
[2017-07-26] MEDS ORDERED: DIAZEPAM 5 MG TABLET PO PRN (08:00)
[2017-07-26] MEDS ORDERED: DIPHENHYDRAMINE HCL 25 MG CAPSULE PO PRN (08:00)
[2017-07-26] MEDS ORDERED: ASPIRIN 325 MG TABLET PO PRN (08:00)
[2017-07-26] MEDS ORDERED: NORMAL SALINE 1000 ML 1,000 ML IV PRN (08:00)
[2017-07-26] MEDS ORDERED: ASPIRIN 325 MG TABLET ONE (08:10)
[2017-07-26] MEDS ORDERED: DIPHENHYDRAMINE HCL 25 MG CAPSULE ONE (08:10)
[2017-07-26] MEDS ORDERED: DIAZEPAM 5 MG TABLET ONE (08:11)
[2017-07-26] MEDS ORDERED: MIDAZOLAM 2 MG/2 ML INJ ONE (08:24)
[2017-07-26] MEDS ORDERED: FENTANYL CITRATE INJ/PF 100 MCG/2 ML AMPUL ONE (08:25)
[2017-07-26] MEDS ORDERED: HEPARIN SOD (PORCINE) 5,000 UNIT/ML 1 ML SYRINGE ONE (08:25)
[2017-07-26] MEDS ORDERED: ATROPINE SULFATE INJ 1 MG/10 ML DISP.SYRIN IV ONE (08:51)
[2017-07-26] MEDS ORDERED: LIDOCAINE 1% INJ-PF (10 MG/ML) 30 ML SDV ONE (09:09)
--- NOTE | 2017-07-26 10:09 | PDOC DISCHARGE SUMMARY ---
General - Admit/Disc Date/PCP Admission Date/Primary Care Provider: [facility] Discharge Date: 07/26/17 - Discharge Diagnosis (1) Coronary artery disease Is this a current diagnosis for this admission?: Yes (2) Chest pain Is this a current diagnosis for this admission?: Yes - Additional Information Discharge Diet: Cardiac Home Medications: Aspirin [Ecotrin 81 mg EC Tablet] 81 mg PO DAILY 01/04/13 Hydrochlorothiazide 25 mg PO DAILY 01/04/13 Atorvastatin Calcium [Lipitor 40 mg Tablet] 80 mg PO QHS 03/12/17 Canagliflozin [Invokana] 300 mg PO DAILY 03/12/17 Folic Acid 1 mg PO DAILY 03/12/17 Lansoprazole 30 mg PO DAILY 03/12/17 Pioglitazone HCl 30 mg PO DAILY 03/12/17 Amlodipine Besylate [Norvasc 5 mg Tablet] 5 mg PO DAILY 03/13/17 Metformin HCl [Metformin HCl ER] 1,000 mg PO BID 03/13/17 Methotrexate Sodium [Methotrexate] 2.5 mg PO Q7D 03/13/17 Metoprolol Tartrate [Lopressor 100 mg Tablet] 150 mg PO Q12 03/13/17 Insulin Glargine,Hum.rec.anlog [Fatou Michel] 36 unit SQ QHS 07/26/17 History of Present Illness History of Present Illness: REJI BROOKE is a 56 year old female Hospital Course Hospital Course: Cardiac catheterization Physical Exam Vital Signs: Temp Pulse Resp BP Pulse Ox 98.2 F 85 18 162/85 H 97 07/26/17 07:30 07/26/17 07:30 07/26/17 07:30 07/26/17 07:30 07/26/17 07:30 Intake & Output 07/25/17 07/26/17 07/27/17 06:59 06:59 06:59 Weight 86.183 kg Qualifiers VTE patient discharged on overlapping Therapy?: No Reason(s) for not prescribing Overlap Therapy:: Not indicated Stroke Pt being discharged on Anti-thrombolytic therapy?: No Plan Discharge Plan: continue medical therapy follow with Dr Siegel in 7-10 days Time Spent: Less than 30 Minutes
--- NOTE | 2017-07-26 11:58 | CARDIAC CATHERIZATION REPORT ---
CARDIAC CATHETERIZATION REPORT PATIENT NAME: REJI BROOKE MR#: [id number] : 1960 ROOM#: DATE OF STUDY: 07/26/2017 INDICATION: Medically refractory chest pain. SURGEON: RADHA PATEL M.D. PROCEDURE: After informed consent, the patient was brought to the cardiac catheterization lab. The right wrist was prepared in the usual and sterile draped manner and anesthetized with 1% lidocaine solution. Hemodynamic access was gained without difficulty using micropuncture technique. The patient was anticoagulated and an intraarterial cocktail of verapamil and lidocaine were administered. Selective coronary angiography was performed using a [facility] catheter. This was exchanged with pigtail catheter for left ventriculography. Conscious sedation was initiated, monitored, and maintained during the procedure with a start time of 8:54 and a completion time of 9:50 for procedure time and conscious sedation time of 56 minutes. A total of 75 mcg of fentanyl and 1 mg of Versed were administered for conscious sedation. HEMODYNAMIC DATA: Aortic pressure at the beginning of the case was 166/77. Post ventriculography LV pressure is 155/13. Aortic pressure on pullback is 155/67. There was no gradient across the aortic valve. CORONARY ANGIOGRAPHY, LEFT MAIN: The left main is normal. LAD: The LAD is a transapical vessel with luminal irregularities in the proximal portion. There is a 30% stenosis after the first major septal custom framing specialist. The mid to distal portion of the LAD has a 30-40% stenosis. Neither of these appear significant. The circumflex is a dominant vessel supplying a large posterolateral and PDA. There are minor luminal irregularities in this vessel but no critical or focused stenosis are seen. RIGHT CORONARY ARTERY: The right coronary artery is completely occluded after the conus branch. There is some reconstitution with some [id number] collateralization of what appears to be a nondominant right coronary artery. Left ventriculography is performed in the standard HOFF projection. This demonstrates regional wall motion and no evidence of mitral regurgitation. Visually ejection fraction is the 60% range. IMPRESSION: 1. Normal left ventricular function. 2. No evidence of valvular heart disease. 3. Complete occlusion of the [place] right coronary artery. 4. Noncritical disease in the left dominant circumflex and LAD. DISCUSSION AND RECOMMENDATIONS: Continue risk factor modification and medical therapy. INTERPRETING PHYSICIAN: RADHA PATEL M.D. /: [id number] TT: [id number] ID: [id number] /: [id number] TD: 1131 JOB: [id number] cc:KT RICARDO M.D., JOHN M.D. >
[2017-07-26 13:14] VITALS: BP 145/95
== END 2017-07-26 13:35 | disposition home or self-care (01) ==
LOC: CCL 07:10
PROVIDERS: ATTEND Internal Medicine Cardiovascular Disease
DX: I25.10 Atherosclerotic heart disease of native coronary artery without angina pectoris (principal); R07.9 Chest pain, unspecified; M06.041 Rheumatoid arthritis without rheumatoid factor, right hand; M06.042 Rheumatoid arthritis without rheumatoid factor, left hand; I10 Essential (primary) hypertension; E78.00 Pure hypercholesterolemia, unspecified; Z79.82 Long term (current) use of aspirin; Z79.899 Other long term (current) drug therapy; Z79.4 Long term (current) use of insulin; Z79.84 Long term (current) use of oral hypoglycemic drugs
CPT/HCPCS: 82962; 93458; J2250; J1644 ×2; J3010; J3490 ×4; J0461

== ENCOUNTER → 2017-08-09 | Outpatient (CLI) | payer OTHER ==
--- NOTE | 2017-08-09 14:12 | RADIOLOGY REPORT (SQ) ---
EXAM DESCRIPTION: CT ABD/PELVIS WITH IV ORAL COMPLETED DATE/TIME: 08/09/2017 10:45 am REASON FOR STUDY: ABD PAIN (R10.9) R10.9 UNSPECIFIED ABDOMINAL PAIN COMPARISON: None. TECHNIQUE: CT scan of the abdomen and pelvis performed using helical scanning technique with dynamic intravenous contrast injection. No oral contrast. Images reviewed with lung, soft tissue, and bone windows. Reconstructed coronal and sagittal MPR images reviewed. Delayed images for evaluation of the urinary system also acquired. All images stored on PACS. All CT scanners at this facility use dose modulation, iterative reconstruction, and/or weight based d osing when appropriate to reduce radiation dose to as low as reasonably achievable (ALARA). [facility]: Dose Right [facility]: CareDose [facility]: Dose Right [facility]: Teradose 4D [facility]: [employer] CONTRAST TYPE AND DOSE: contrast/concentration: Isovue 370.00 mg/ml; Total Contrast Delivered: 94.0 ml; Total Saline Delivered: 71.0 ml RENAL FUNCTION: Creatinine 0.7. RADIATION DOSE: CT Rad equipment meets quality standard of care and radiation dose reduction techniq ues were employed. CTDIvol: 8.7 - 10.3 mGy. DLP: 949 mGy-cm.. LIMITATIONS: None. FINDINGS: LOWER CHEST: No significant findings. No nodules or infiltrates. LIVER: Normal size. Diffuse fatty infiltration. No masses. No dilated ducts. SPLEEN: Normal size. No focal lesions. PANCREAS: No masses. No significant calcifications. No adjacent inflammation or peripancreatic fluid collections. Pancreatic duct not dilated. GALLBLADDER: No identified stones by CT criteria. No inflammatory changes to suggest cholecystitis. ADRENAL GLANDS: No significant masses or asymmetry. RIGHT KIDNEY AND URETER: No solid masses. No significant calcifications. No hydronephrosis or hyd roureter. LEFT KIDNEY AND URETER: No solid masses. 6 mm upper pole calculus. No hydronephrosis or hydrouret er. AORTA AND VESSELS: No aneurysm. No dissection. Renal arteries, SMA, celiac without stenosis. RETROPERITONEUM: No retroperitoneal adenopathy, hemorrhage or masses. BOWEL AND PERITONEAL CAVITY: No masses or inflammatory changes. No free fluid or peritoneal masses. APPENDIX: Normal. PELVIS: No mass. No free fluid. Normal bladder. ABDOMINAL WALL: No masses. No hernias. BONES: No significant or acute findings. OTHER: No other significant finding. IMPRESSION: 1. 6 MM NONOBSTRUCTING CALCULUS IN THE UPPER POLE OF LEFT KIDNEY. THIS IS UNCHANGED COMPARED TO PRIO R CHEST CTA DATED 03/12/2017. 2. FATTY INFILTRATION OF THE LIVER. 3. NO OTHER SIGNIFICANT OR ACUTE FINDING IN THE ABDOMEN OR PELVIS ON CT SCAN WITH IV CONTRAST. TECHNICAL DOCUMENTATION: JOB ID: [id number] Quality ID # [id number]: Final reports with documentation of one or more dose reduction techniques (e.g., Au tomated exposure control, adjustment of the mA and/or kV according to patient size, use of iterative reconstruction technique) 2010 [employer]- All Rights Reserved
== END ==
LOC: RAD 09:41
DX: R10.9 Unspecified abdominal pain (principal); N20.0 Calculus of kidney; K76.0 Fatty (change of) liver, not elsewhere classified
CPT/HCPCS: 74177; 82565

== ENCOUNTER 2017-12-07 14:54 | Emergency (ER) | payer SELFPAY ==
[2017-12-07] MEDS ORDERED: ASPIRIN 81 MG TABLET, CHEWABLE PO ONE (15:29)
[2017-12-07] MEDS ORDERED: PROCHLORPERAZINE EDISYLATE INJ 10 MG/2 ML VIAL IV ONE (15:30)
[2017-12-07] MEDS ORDERED: ONDANSETRON 4 MG TAB.RAPDIS PO ONE (15:30)
[2017-12-07] MEDS ORDERED: NORMAL SALINE 1000 ML 1,000 ML IV ONE (15:31)
--- NOTE | 2017-12-07 15:31 | ER Document Report ---
ED Medical Screen (RME) - General Chief Complaint: Chest Pain Stated Complaint: CHEST PAIN Time Seen by Provider: 12/07/17 15:24 TRAVEL OUTSIDE OF THE [place] 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 - Related Data Allergies/Adverse Reactions: No Known Allergies Allergy (Verified 12/07/17 15:24) Past Medical History - Social History Chew tobacco use (# tins/day): No Frequency of alcohol use: None Drug Abuse: None - Past Medical History Cardiac Medical History: Reports: Hx Coronary Artery Disease - hyperlipidemia, Hx Hypercholesterolemia, Hx Hypertension Denies: Hx Heart Attack Endocrine Medical History: Reports: Hx Diabetes Mellitus Type 2 Renal/ Medical History: Denies: Hx Peritoneal Dialysis GI Medical History: Reports: Hx Gastroesophageal Reflux Disease Musculoskeltal Medical History: Reports Hx Arthritis - RA, lupus, Reports Hx Fibromyalgia, Reports Hx Musculoskeletal Deformity Psychiatric Medical History: Reports: Hx Anxiety, Hx Depression Past Surgical History: Reports: Hx Cardiac Catheterization, Hx Gynecologic Surgery - BILAT OOPHORECTOMY 2006., Hx Hysterectomy - Immunizations Hx Diphtheria, Pertussis, Tetanus Vaccination: Yes History of Influenza Vaccine for 03/2017 - 08/2017 Season: Refused Review of Systems - Review of Systems Constitutional: Other - Chest pain headache dizziness blurry vision Physical Exam - Vital signs Vitals: Temp Pulse Resp BP Pulse Ox 98.8 F 108 H 18 148/82 H 95 12/07/17 15:11 12/07/17 15:11 12/07/17 15:11 12/07/17 15:11 12/07/17 15:11 - General General appearance: Appears well In distress: None Course - Vital Signs Vital signs: Temp Pulse Resp BP Pulse Ox 98.8 F 108 H 18 148/82 H 95 12/07/17 15:11 12/07/17 15:11 12/07/17 15:11 12/07/17 15:11 12/07/17 15:11
--- NOTE | 2017-12-07 16:06 | RADIOLOGY REPORT (SQ) ---
EXAM DESCRIPTION: CHEST SINGLE VIEW COMPLETED DATE/TIME: 12/07/2017 3:51 pm REASON FOR STUDY: cp COMPARISON: February 2017 EXAM PARAMETERS: NUMBER OF VIEWS: One view. TECHNIQUE: Single frontal radiographic view of the chest acquired. RADIATION DOSE: NA LIMITATIONS: None. FINDINGS: LUNGS AND PLEURA: No opacities, masses or pneumothorax. No pleural effusion. MEDIASTINUM AND HILAR STRUCTURES: No masses. Contour normal. HEART AND VASCULAR STRUCTURES: Heart normal in size. Normal vasculature. BONES: No acute findings. HARDWARE: None in the chest. OTHER: No other significant finding. IMPRESSION: NO ACUTE RADIOGRAPHIC FINDING IN THE CHEST. TECHNICAL DOCUMENTATION: JOB ID: [id number] [email or web address]- All Rights Reserved Reading location - IP/workstation name: [email or web address]
[2017-12-07 16:24] LABS: ABSOLUTE BASOPHILS # (AUTO) 0.1 10^3/uL (0.0-0.2); ABSOLUTE EOSINOPHILS # (AUTO) 0.1 10^3/uL (0.0-0.6); ABSOLUTE LYMPHOCYTES (AUTO) 3.1 10^3/uL (0.5-4.7); ABSOLUTE MONOCYTES (AUTO) 0.5 10^3/uL (0.1-1.4); ABSOLUTE NEUT (AUTO) 3.5 10^3/uL (1.7-8.2); BASOPHILS % (AUTO) 1.2 % (0-2); EOSINOPHILS % (AUTO) 1.9 % (0-6); HEMATOCRIT 42.6 % (36.0-47.0); HEMOGLOBIN 14.4 g/dL (12.0-15.5); LYMPHOCYTES % (AUTO) 42.1 % (13-45); MEAN CORPUSCULAR HEMOGLOBIN 29.5 pg (27.0-33.4); MEAN CORPUSCULAR VOLUME 87 fl (80-97); MONOCYTES % (AUTO) 7.4 % (3-13); PLATELET COUNT 248 10^3/uL (150-450); RED CELL DISTRIBUTION WIDTH 13.8 % (11.5-14.0); SEGMENTED NEUTROPHILS % (AUTO) 47.4 % (42-78); TOTAL CELLS COUNTED % (AUTO) 100 %; WHITE BLOOD COUNT 7.4 10^3/uL (4.0-10.5)
--- NOTE | 2017-12-07 16:43 | ER Document Report ---
ED General - General Chief Complaint: Chest Pain Stated Complaint: CHEST PAIN Time Seen by Provider: 12/07/17 15:24 Information source: Patient Notes: 57-year-old female with history of fibromyalgia, lupus, rheumatoid arthritis, high cholesterol, diabetes, chronic headaches, vertigo, hypertension presents with intermittent episodes of left-sided chest pain radiating to her arm for the past 2 weeks. It is mostly worse with lifting and exertion. She has mild shortness of breath, dizziness, unsteady gait, and headache associated with the pain. She was seen by her knit goods cutter hand yesterday and told it was not related to her heart, but probably more related to her rheumatoid arthritis. She had cardiac cath June 2017 showed a completely occluded right coronary with noncritical stenosis of the left dominant circumflex and LAD. This was performed by Dr. Freddie Sewell. She has had multiple prior emergency department visits for chest pain and most recently had a CTA chest in February 2017 during a hospital admission for chest pain, that was negative for pulmonary embolism. She denies any leg swelling or recent long distance travel. No cough, hemoptysis, fever. Garage Attendant took her off of [employer] yesterday. TRAVEL OUTSIDE OF THE [place] IN LAST 30 DAYS: No - Related Data Allergies/Adverse Reactions: No Known Allergies Allergy (Verified 12/07/17 15:24) Past Medical History - Social History Smoking Status: Never Smoker Chew tobacco use (# tins/day): No Frequency of alcohol use: None Drug Abuse: None Family History: Arthritis, Hypertension, Malignancy Patient has suicidal ideation: No Patient has homicidal ideation: No - Past Medical History Cardiac Medical History: Reports: Hx Coronary Artery Disease - hyperlipidemia, Hx Hypercholesterolemia, Hx Hypertension Denies: Hx Heart Attack Endocrine Medical History: Reports: Hx Diabetes Mellitus Type 2 Renal/ Medical History: Denies: Hx Peritoneal Dialysis GI Medical History: Reports: Hx Gastroesophageal Reflux Disease Musculoskeltal Medical History: Reports Hx Arthritis - RA, lupus, Reports Hx Fibromyalgia, Reports Hx Musculoskeletal Deformity Psychiatric Medical History: Reports: Hx Anxiety, Hx Depression Past Surgical History: Reports: Hx Cardiac Catheterization, Hx Gynecologic Surgery - BILAT OOPHORECTOMY 2006., Hx Hysterectomy - Immunizations Hx Diphtheria, Pertussis, Tetanus Vaccination: Yes Review of Systems - Review of Systems Notes: REVIEW OF SYSTEMS: CONSTITUTIONAL: -fevers, -chills EENT: -eye pain, -difficulty swallowing, -nasal congestion CARDIOVASCULAR: +chest pain, -syncope. RESPIRATORY: -cough, +SOB GASTROINTESTINAL: -abdominal pain, -nausea, -vomiting, -diarrhea GENITOURINARY: -dysuria, -hematuria MUSCULOSKELETAL: +diffuse muscle/joint pains SKIN: -rash or skin lesions. HEMATOLOGIC: -easy bruising or bleeding. LYMPHATIC: -swollen, enlarged glands. NEUROLOGICAL: -altered mental status or loss of consciousness, +headache, + dizziness -neurologic symptoms PSYCHIATRIC: -anxiety, -depression. Physical Exam - Vital signs Vitals: Temp Pulse Resp BP Pulse Ox 98.8 F 108 H 18 148/82 H 95 12/07/17 15:11 12/07/17 15:11 12/07/17 15:11 12/07/17 15:11 12/07/17 15:11 - Notes Notes: PHYSICAL EXAMINATION: GENERAL: Well-appearing, well-nourished and in no acute distress. HEAD: Atraumatic, normocephalic. EYES: Pupils equal round and reactive to light, extraocular movements intact, conjunctiva are normal. ENT: nares patent, oropharynx clear without exudates. Moist mucous membranes. NECK: Normal range of motion, supple without lymphadenopathy LUNGS: Breath sounds clear to auscultation bilaterally and equal. No wheezes rales or rhonchi. HEART: Regular rate and rhythm, no chest wall tenderness ABDOMEN: Soft, nontender, normoactive bowel sounds. No guarding, no rebound. No masses appreciated. EXTREMITIES: Normal range of motion, no pitting or edema. No cyanosis. NEUROLOGICAL: Cranial nerves grossly intact. Normal speech, normal gait. Normal sensory and motor exams. PSYCH: Normal mood, normal affect. SKIN: Warm, Dry, normal turgor, no rashes or lesions noted. Course - Re-evaluation Re-evalutation: 12/07/17 16:42 Multiple prior visits for similar symptoms with extensive workup. Will check d- dimer, troponin. No change in EKG with baseline sinus tachycardia and nonspecific ST changes. 12/07/17 17:38 Workup unremarkable. Normal d-dimer and troponin. Advised GI evaluation and primary care follow-up. Patient chest pain-free at this time and would like to go home. - Vital Signs Vital signs: Temp Pulse Resp BP Pulse Ox 98.8 F 108 H 18 148/82 H 95 12/07/17 15:11 12/07/17 15:11 12/07/17 15:11 12/07/17 15:11 12/07/17 15:11 - Laboratory Result Diagrams: 12/07/17 15:51 12/07/17 15:51 Laboratory results interpreted by me: 12/07/17 15:51 Carbon Dioxide 32 H Glucose 353 H - EKG Interpretation by Me EKG shows normal: Sinus rhythm, ST-T Waves - nonspecific changes Rate: Tachycardia Rhythm: NSR When compared to previous EKG there are: No significant change Discharge - Discharge Clinical Impression: Chest pain Qualifiers: Chest pain type: other chest pain Qualified Code(s): R07.89 - Other chest pain ; R07.8 - Other chest pain Headache Qualifiers: Headache type: unspecified Headache chronicity pattern: unspecified pattern Intractability: not intractable Qualified Code(s): R51 - Headache Condition: Good Disposition: HOME, SELF-CARE Additional Instructions: Follow-up with your doctor for further evaluation of chest pain. you will need to see a GI specialist to rule out esophageal spasm or gastritis as the cause. Also follow-up with your forest ranger technician. Return for any worsening or concerning symptoms. CHEST PAIN OF UNCLEAR CAUSE: The exact cause of your chest pain isn't clear. Fortunately, there is no evidence of a dangerous medical condition. Further testing may be required to find the source of the pain. Most often, we find that this pain is coming from the chest wall -- the muscles or rib joints in the chest. But chest pain can come from the lung and lung lining, the esophagus, the heart valves or heart lining, and even the stomach or gallbladder. Rest. Eat lightly until the pain is gone. We may prescribe medicine for pain and inflammation. You should call the physician immediately if the pain radiates to the shoulder, jaw or arms; if you start to run a fever or develop a cough; or if you develop shortness of breath, or other new or alarming symptoms. NORMAL EXAM AND WORKUP: At this time, your examination and workup show no significant abnormality. No significant abnormal physical findings were noted. All laboratory, EKG, and imaging (x-ray, CT scans, ultrasound) studies that were ordered show no significant abnormality. Although your examination and all studies that were ordered showed no significant abnormal finding, there are no examinations and no studies that are 100% accurate. There is always the possibility that some abnormality could exist and not be detected with physical examination or within the limits and capabilities of laboratory and other studies. You should return or follow up as you were instructed on your visit today for further evaluation if your symptoms do not resolve. ACID REFLUX DISEASE (GERD): Gastro-Esophageal Reflux Disease (GERD) is caused by stomach acid refluxing back up into the esophagus. The valve at the end of the esophagus may be weak. This is common in persons with a hiatal hernia. GERD symptoms can include indigestion, chest pain, heartburn, or food "sticking." Certain foods, alcohol, and aspirin can make GERD worse. Treatment depends on the severity. Usually, antacids or acid-suppressing medicines are used. When the esophagus is acutely inflamed, the physician will often prescribe membrane-protective drugs such as Carafate. Some patients benefit from medication such as Reglan that tightens the valve at the top of the stomach. Avoid those foods that bring on your symptoms. For many people, these foods are coffee, chocolate, onions, garlic, and carbonated drinks. Don't use alcohol, aspirin, caffeine, or tobacco. Don't eat late at night -- within 4 hours of bedtime. Don't over-eat. If necessary, elevate the head of your bed about 4 inches so that stomach acid will not roll up into your esophagus. Call the doctor if you develop severe chest pain, inability to swallow fluids, fever, or worsening symptoms. ASPIRIN: Aspirin has been shown to have a beneficial effect on blood circulation by reducing the clotting effect of platelets in the blood. These beneficial effects can be achieved by taking just a single baby (81 mg) aspirin a day. It is recommended that any person over the age of forty take a single baby aspirin every day for heart and brain circulation, unless you are allergic to aspirin or have some significant bleeding disorder. It is strongly recommended that people who have proven cardiac or blood circulation disturbances should take a baby aspirin every day. NITRATES: Nitroglycerin and related longer-acting nitrate medications are used to prevent or treat attacks of angina. These medicines dilate blood vessels, decreasing the work of the heart, and improving its supply of oxygen. Many different forms are available, including sublingual tablets (used under the tongue), sprays, skin patches, and long-acting pills. If the particular form of medication you have been given is not working well for you, contact your doctor. Long-acting forms: Take exactly as prescribed. Sudden stopping of medication can provoke increased attacks. Sublingual tabs or spray: A headache will usually occur with use. Sit or lie while waiting for the pain to go away. If angina doesn't respond to three doses (five minutes apart), call for emergency assistance. ANTACID THERAPY: You have been instructed to start antacid therapy. Antacids directly neutralize stomach acid. This is useful for acid irritation of the esophagus, gastritis, and ulcers. You should take two tablespoons of antacid one hour after each meal and three hours after each meal. If you are not eating, take the antacid every two hours. If you are using a concentrate (such as Maalox TC), use only one tablespoon. Many antacids affect the bowels. The most common problem is diarrhea. In this case, a pure aluminum hydroxide antacid (such as AlternaGel) can be substituted for some or all doses. If the problem is constipation, add a teaspoon of Milk of Magnesia to each dose. Call the doctor if you experience continued diarrhea or constipation, or if you develop lightheadedness, bloody stool or vomitus, severe abdominal pain, or black stool. PRILOSEC (ACID PUMP INHIBITOR): Prilosec (omeprazole) is an acid-pump inhibitor. It blocks the secretion of hydrogen ions in the acid-producing cells of the stomach. Prilosec keeps your stomach from making acid. Take all medication as prescribed, even after the pain is gone. Regular antacids may be added as needed if you have symptoms while taking this medicine. There are usually no side effects from this medication. Contact your doctor if there is fever, rash, yellow skin color, increasing abdominal pain, weakness, or unusual bruising. Return at once if you develop lightheadedness, black or bloody stool, or bloody vomitus. FOLLOW-UP CARE: If you have been referred to a physician for follow-up care, call the physician s office for an appointment as you were instructed or within the next two days. If you experience worsening or a significant change in your symptoms, notify the physician immediately or return to the Emergency Department at any time for re-evaluation. Forms: Elevated Blood Pressure
[2017-12-07 16:44] LABS: ALANINE AMINOTRANSFERASE 36 U/L (9-52); ALBUMIN 4.4 g/dL (3.5-5.0); ALKALINE PHOSPHATASE 104 U/L (38-126); ANION GAP 15 (5-19); ASPARTATE AMINO TRANSFERASE 34 U/L (14-36); BILIRUBIN,DIRECT 0.4 mg/dL (0.0-0.4); BILIRUBIN,TOTAL 0.5 mg/dL (0.2-1.3); BLOOD UREA NITROGEN 18 mg/dL (7-20); CALCIUM 9.9 mg/dL (8.4-10.2); CARBON DIOXIDE 32 mmol/L (22-30); CHLORIDE 98 mmol/L (98-107); CREATINE KINASE 133 U/L (30-135); GLUCOSE 353 mg/dL (75-110); POTASSIUM 3.9 mmol/L (3.6-5.0); SODIUM 144.8 mmol/L (137-145)
[2017-12-07 16:56] LABS: CREATINE KINASE MB 0.93 ng/mL (<4.55)
[2017-12-07 16:57] LABS: TROPONIN I < 0.012 ng/mL
[2017-12-07 17:48] VITALS: BP 158/92
--- NOTE | 2017-12-07 19:41 | EKG REPORT ---
SEVERITY:- BORDERLINE ECG - SINUS TACHYCARDIA PROBABLE LEFT ATRIAL ABNORMALITY BORDERLINE T ABNORMALITIES, INFERIOR LEADS : Confirmed by: Loki Torres MD 07-Dec-2017 19:41:02
== END 2017-12-07 18:11 | disposition home or self-care (01) ==
LOC: ER 14:54
DX: R07.9 Chest pain, unspecified (principal); R51 Headache; E11.9 Type 2 diabetes mellitus without complications; I10 Essential (primary) hypertension; I25.10 Atherosclerotic heart disease of native coronary artery without angina pectoris; R06.02 Shortness of breath; R42 Dizziness and giddiness; R26.81 Unsteadiness on feet
CPT/HCPCS: 93005; 99285; 96361; 96374; 36415; 82553; 82550; 85025; 80053; 84484; 85379; 71045; 93010; S0119; J0780; J7030